=== PATIENT | female | born 1950 | race American Indian/Alaskan Native ===

== ENCOUNTER 2018-09-15 03:36 | Inpatient (IN) ==
[2018-09-15 04:09] LABS: POC Blood Urea Nitrogen 23 mg/dl (8-23); POC CO2 26 mmol/L (22-30); POC Calcium, Ionized 1.07 mmol/L (1.16-1.32); POC Chloride 100 mmol/L (96-108); POC Glucose, Random 176 mg/dL (70-105); POC Potassium 3.4 mmol/L (3.3-5.1); POC Sodium 138 mmol/L (133-145)
--- NOTE | 2018-09-15 04:14 | Emergency Department Note ---
Fall HPI - General Chief Complaint: Fall Stated Complaint: fall Time Seen by Provider: 09/15/18 03:39 Source: patient Mode of arrival: EMS Limitations: language barrier - History of Present Illness HPI Narrative: She was at [employer] when she was walking outside and tripped on the curb injuring her right shoulder and left knee And left hip.she had no head injury there is no neck pain no loss of consciousness. States that she tripped over the curb. Has a superficial laceration to the lower right lip no other injuries involved no tenderness to the torsoTemperature is 97.6 the pulse is 68 respiratory rate 15 blood pressure 172/65 show pulse ox was 87 on 2 L up to 94 - Related Data Home Medications Medication Instructions Recorded Confirmed Carvedilol [Coreg] 25 mg PO BID 09/15/18 09/15/18 Cholecalciferol 09/15/18 Diltiazem HCl [Diltiazem 24Hr Cd] 09/15/18 Furosemide [Lasix] 40 mg PO DAILY 09/15/18 09/15/18 Insulin Detemir [Levemir] 58 unit 09/15/18 Losartan/Hydrochlorothiazide 09/15/18 [Losartan-Hctz 100-25 mg Tab] Potassium Chloride [Kdur] 10 meq PO QAMCC 09/15/18 09/15/18 Vitamin B-12 09/15/18 metFORMIN HCL [Metformin ER 09/15/18 Osmotic] Allergies Allergy/AdvReac Type Severity Reaction Status Date / Time iodine Allergy Intermediate sSOB Verified 09/15/18 03:46 Review of Systems All systems ED: reviewed and negative except as stated. Musculoskeletal: Reports: as per HPI, other (Painful right shoulder left hip right left knee) Fall PMH - Past Medical History Medical history: Reports: DM, hypertension, other (ITP) Surgical history ED: Reports: knee replacement, splenectomy Family history: Reports: no significant family history - Social History smoking status: Never smoker Alcohol use: Reports: None Drug use: Reports: none Physical Exam Limitations: no limitations General appearance: alert Head: atraumatic, normocephalic Eye: Present: normal appearance, PERRL ENT: normal exam, normal oropharynx, mucous membranes moist Neck: Present: normal inspection, full ROM, trachea midline Chest: Present: normal inspection, symmetric chest wall rise. Absent: tenderne ss Respiratory: Present: normal lung sounds bilaterally. Absent: respiratory distress, rales/crackles, wheezes Cardiovascular: Present: regular rate, normal rhythm. Absent: bradycardia, tachycardia Abdominal: Present: soft, normal bowel sounds. Absent: distention, tenderness, guarding, rebound, rigidity Shoulder: Present: normal inspection, tenderness (Tender right shoulder). Absent: laceration, ecchymosis Arm: Present: normal inspection Elbow: Present: normal inspection Forearm/Wrist: Present: normal inspection Hand: Present: normal inspection Hip/Pelvis: Present: tenderness (Tender left hip) Upper leg: Present: normal inspection, full ROM Knee: Present: tenderness (Tender left knee). Absent: deformity, crepitus Lower leg: Present: normal inspection, full ROM Ankle: Present: normal inspection Foot/toe: Present: normal inspection Back: Present: normal inspection, full ROM. Absent: tenderness Neurological: Present: alert, oriented X3, CN II-XII intact Psychiatric: Present: normal affect, normal mood Course Vital Signs Temperature 97.6 F 09/15/18 03:37 Pulse Rate 69 09/15/18 03:37 Respiratory Rate 15 09/15/18 03:37 Blood Pressure 172/65 09/15/18 03:37 Pulse Oximetry (%) 87 L 09/15/18 03:37 Temperature 97.6 F 09/15/18 03:37 Pulse Rate 79 09/15/18 06:51 Respiratory Rate 15 09/15/18 03:37 Blood Pressure 137/57 09/15/18 06:16 Pulse Oximetry (%) 97 09/15/18 06:51 Fall - MDM Narrative Medical decision making narrative: Shoulder x-ray and hip x-rays are negative. Knee x-ray reveals fracture of the distal femur with angulation chest x-ray cardiomegalySodium is 138 potassium 3.4 the BUN is 23 the creatinine 1.0 glucose is 176. The CBC shows a white count of 9400 hemoglobin is 10.6 hematocrit of 32.5 platelet count is 56,000 PT/INR is 1.0 sodium is [address] Pang consulted and Dr Simpson, hospitalist has accepted the patient to med-surg - Lab Data Result diagrams: 09/15/18 04:00 Lab Results 09/15/18 09/15/18 09/15/18 Range/Units 04:00 04:00 05:09 WBC 9.4 (4.5-11.0) K/mcL RBC 3.86 L (4.00-5.20) M/mcL Hgb 10.6 L (12.0-15.0) g/dL Hct 32.5 L (36.0-48.0) % POC Hct 32.0 L (36.0-48.0) % MCV 84.1 (80.0-100.0) fL MCH 27.3 (26.0-34.0) pg MCHC 32.5 (31.0-36.0) g/dL RDW 17.0 H (11.5-14.5) % Plt Count 56 L (140-440) K/mcL MPV 11.7 H (7.4-10.4) fL Gran % 57.1 (38.0-78.0) % Lymph % (Auto) 29.9 (15.5-49.0) % [place] % (Auto) 7.6 (1.0-12.0) % Eos % (Auto) 4.7 (0.0-7.0) % Baso % (Auto) 0.7 (0.0-2.0) % Gran # 5.4 (1.8-8.0) K/mcL Lymph # (Auto) 2.8 (1.5-4.8) K/mcL [place] # (Auto) 0.7 (0.1-0.9) K/mcL Eos # (Auto) 0.4 (0.0-0.7) K/mcL Baso # (Auto) 0.1 (0.0-0.3) K/mcL POC PT (11.9-14.5) sec POC INR (0.9-1.2) PT/INR Range Cancelled POC Sodium 138 (133-145) mmol/L POC Potassium 3.4 (3.3-5.1) mmol/L POC Chloride 100 (96-108) mmol/L POC Total CO2 26 (22-30) mmol/L POC BUN 23 (8-23) mg/dl POC Creatinine 1.0 (0.6-1.1) mg/dl POC Glucose 176 H (70-105) mg/dL POC WB Ioniz Calcium 1.07 L (1.16-1.32) mmol/L Urine Color Urine Appearance Urine pH (5.0-9.0) Ur Specific [place] (1.000-1.035) Urine Protein (NEG) mg/dL Urine Glucose (UA) (NEG) mg/dL Urine Ketones (NEG) mg/dL Urine Occult Blood (<0.03) mg/dL Urine Nitrate (NEG) Urine Bilirubin (NEG) mg/dL Urine Urobilinogen (NEG) mg/dL Ur Leukocyte Esterase (NEG) /uL Urine RBC (0-1) /hpf Urine WBC (0-4) /hpf Ur Squamous Epith Cells (0-4) /hpf Urine Bacteria (0) /hpf Ur Culture Indicated? 09/15/18 09/15/18 Range/Units 05:50 05:51 WBC (4.5-11.0) K/mcL RBC (4.00-5.20) M/mcL Hgb (12.0-15.0) g/dL Hct (36.0-48.0) % POC Hct (36.0-48.0) % MCV (80.0-100.0) fL MCH (26.0-34.0) pg MCHC (31.0-36.0) g/dL RDW (11.5-14.5) % Plt Count (140-440) K/mcL MPV (7.4-10.4) fL Gran % (38.0-78.0) % Lymph % (Auto) (15.5-49.0) % Knox % (Auto) (1.0-12.0) % Eos % (Auto) (0.0-7.0) % Baso % (Auto) (0.0-2.0) % Gran # (1.8-8.0) K/mcL Lymph # (Auto) (1.5-4.8) K/mcL [place] # (Auto) (0.1-0.9) K/mcL Eos # (Auto) (0.0-0.7) K/mcL Baso # (Auto) (0.0-0.3) K/mcL POC PT 12.1 (11.9-14.5) sec POC INR 1.0 (0.9-1.2) PT/INR Range POC Sodium (133-145) mmol/L POC Potassium (3.3-5.1) mmol/L POC Chloride (96-108) mmol/L POC Total CO2 (22-30) mmol/L POC BUN (8-23) mg/dl POC Creatinine (0.6-1.1) mg/dl POC Glucose (70-105) mg/dL POC WB Ioniz Calcium (1.16-1.32) mmol/L Urine Color Yellow Urine Appearance Clear Urine pH 6.0 (5.0-9.0) Ur Specific [place] 1.015 (1.000-1.035) Urine Protein Neg (NEG) mg/dL Urine Glucose (UA) Negative (NEG) mg/dL Urine Ketones Neg (NEG) mg/dL Urine Occult Blood Neg (<0.03) mg/dL Urine Nitrate Neg (NEG) Urine Bilirubin Neg (NEG) mg/dL Urine Urobilinogen Neg (NEG) mg/dL Ur Leukocyte Esterase Neg (NEG) /uL Urine RBC 1 (0-1) /hpf Urine WBC < 1 (0-4) /hpf Ur Squamous Epith Cells < 1 (0-4) /hpf Urine Bacteria 0 (0) /hpf Ur Culture Indicated? No Disposition Pt seen by [employer]/PA only: No Clinical Impression: Femur fracture, left Qualifiers: Encounter type: initial encounter Femur location: distal, unspecified portion Fracture type: closed Disposition: Xfer As Inpt ([facility]) Condition: Fair Referrals: No,PCP [Primary Care Provider] - Time of Disposition: 07:11
[2018-09-15] MEDS ORDERED: ONDANSETRON 4 MG/2 ML VIAL IV ONE (04:51)
[2018-09-15] MEDS ORDERED: LACTATED RINGERS 1,000 ML IV SCH (05:00)
[2018-09-15] MEDS: HYDROmorphone 2 MG/ML VIAL IV PRN ×4 (05:05→09:15)
--- NOTE | 2018-09-15 05:27 | XRay Report ---
CLINICAL INFORMATION: fall COMPARISON: 02/26/2018 left hip films FINDINGS: There is no fracture or other osseous abnormality. There is only mild degenerative changes in both SI and right hip joints. Soft tissues are normal. IMPRESSION: Mild degeneration. No fracture Interpreted and Authenticated by: Clifford Peters 09/15/18
--- NOTE | 2018-09-15 05:27 | XRay Report ---
CLINICAL INFORMATION: fall COMPARISON: 02/01/2015 FINDINGS: Cardiomediastinal silhouette is accentuated by leftward rotation and lordotic positioning and within normal limits. The pulmonary vessels are unremarkable. Lungs are clear. No effusions. IMPRESSION: Negative Interpreted and Authenticated by: Clifford Peters 09/15/18
--- NOTE | 2018-09-15 05:29 | XRay Report ---
CLINICAL INFORMATION: fall COMPARISON: None. FINDINGS: A moderately comminuted fracture of the distal femoral metaphysis is appreciated. Distal fragment is angulated 30 degrees posteriorly and also displaced 5 mm medially and posteriorly. It is fractured just superior to the femoral component of a total knee prostheses which appears uninvolved. Tibial component of the knee prostheses unremarkable. There is moderate periarticular soft tissue swelling. IMPRESSION: Moderately comminuted minimally displaced and angulated fracture of the distal femoral metaphysis. Interpreted and Authenticated by: Clifford Peters 09/15/18
--- NOTE | 2018-09-15 05:30 | XRay Report ---
CLINICAL INFORMATION: fall COMPARISON: None. FINDINGS: No fracture or other osseous abnormality identified. Mild inferior hooking of the acromion predisposes to rotator cuff impingement. Mild acromioclavicular and glenohumeral degeneration noted. Soft tissues are normal IMPRESSION: No fracture or posttraumatic change Interpreted and Authenticated by: Clifford Peters 09/15/18
[2018-09-15 05:38] LABS: Basophils # (Auto) 0.1 K/mcL (0.0-0.3); Basophils % (Auto) 0.7 % (0.0-2.0); Eosinophils # (Auto) 0.4 K/mcL (0.0-0.7); Eosinophils % (Auto) 4.7 % (0.0-7.0); Granulocytes % (Auto) 57.1 % (38.0-78.0); Hematocrit 32.5 % (36.0-48.0); Hemoglobin 10.6 g/dL (12.0-15.0); Lymphocytes # (Auto) 2.8 K/mcL (1.5-4.8); Lymphocytes % (Auto) 29.9 % (15.5-49.0); Mean Cell Volume 84.1 fL (80.0-100.0); Mean Corpuscular HGB Conc 32.5 g/dL (31.0-36.0); Mean Platelet Volume 11.7 fL (7.4-10.4); Monocytes # (Auto) 0.7 K/mcL (0.1-0.9); Monocytes % (Auto) 7.6 % (1.0-12.0); Platelet Count 56 K/mcL (140-440); RBC 3.86 M/mcL (4.00-5.20); WBC 9.4 K/mcL (4.5-11.0)
[2018-09-15 05:59] LABS: POC Pro Time 12.1 sec (11.9-14.5)
[2018-09-15 06:47] LABS: Appearance,Urine CLEAR; Bacteria,Urine 0 /hpf (0); Bilirubin,Urine NEG (NEG); Color,Urine YELLOW; Culture Indicated,Urine NO; Glucose,Urine (UA) NEGATIVE (NEG); Ketones,Urine NEG (NEG); Leukocyte Esterase,Urine NEG /uL (NEG); Nitrate,Urine NEG (NEG); Protein,Urine NEG (NEG); Specific Gravity,Urine 1.015 (1.000-1.035); Urine Blood NEG mg/dL (<0.03); Urine RBC 1 /hpf (0-1); Urine Squamous Epithelial Cell < 1 /hpf (0-4); Urine WBC < 1 /hpf (0-4); Urobilinogen,Urine NEG (NEG)
[2018-09-15] MEDS ORDERED: 0.9 % SODIUM CHLORIDE 1,000 ML IV SCH (07:30)
--- NOTE | 2018-09-15 10:47 | History and Physical Report ---
DATE OF ADMISSION: 09/15/2018 CHIEF COMPLAINT: Left femur fracture. HISTORY OF PRESENT ILLNESS: The patient was at the [facility] this morning when she was walking outside and missed a curb, which resulted in her falling at ground level and landing on her left knee. She was taken to the [facility] Emergency Room this morning and x-rays revealed a left distal periprosthetic femur fracture. The patient complains of severe pain in her left knee, but denies hitting her head during the injury or pain in any other extremity. She also denies chest pain, shortness of breath, numbness or tingling. The patient has a knee replacement in that knee that was performed by a Dr. Bernal in [place] over 5 years ago. She also had the right knee replaced by the same physician, also over 5 years ago and has not had problems with either knee since the time of surgery. PAST MEDICAL HISTORY: The patient has a past medical history significant for idiopathic thrombocytopenia as well as diabetes, hypertension, sleep apnea and possible atrial fibrillation. PAST SURGICAL HISTORY: The patient's past surgical history is significant for bilateral knee replacements, a splenectomy and a parathyroid resection. HOME MEDICATION LIST: Please see her chart. ALLERGIES: TO IODINE. NO OTHER KNOWN DRUG ALLERGIES. REVIEW OF SYSTEMS: A 10-point review of systems is negative except as documented in the HPI. SOCIAL HISTORY: Does not smoke or use alcohol or recreational drugs. PHYSICAL EXAMINATION: GENERAL APPEARANCE: The patient is alert and oriented, in mild acute distress secondary to pain. HEENT: The head is atraumatic, normocephalic. RESPIRATORY: All anterior lung lazaro are clear to auscultation bilaterally. CARDIOVASCULAR: Regular rate and rhythm. No murmurs, gallops or rubs. EXTREMITIES: Bilateral upper extremities are normal by exam. Full range of motion, nontender to palpation and unremarkable. Bilateral lower extremity exam, the left knee is diffusely swollen from the femur, thigh area down to the foot and ankle. She is grossly tender to palpation throughout the entire lower left extremity. Range of motion and strength testing were not tested secondary to the amount of her pain. The patient can actively move her foot and ankle and digits. She does have diabetic neuropathy, but has some sensation in her toes and foot. Capillary refill less than 2 seconds bilaterally. DP/PT pulses 2+ bilaterally. NEUROLOGIC: Alert and oriented x3. PSYCHIATRIC: Normal affect, normal mood. VITAL SIGNS: Temperature is 97.6, pulse is 69, respiratory rate 15, blood pressure 172/65, and pulse ox on room air was 87% and improved to 97% on 2 liters nasal cannula. LABORATORY DATA: WBC 9.4, RBC 3.86, hemoglobin 10.6, and platelet count 56,000. INR 1.0. Prothrombin time 12. Glucose 176. X-RAYS: X-rays of the left femur reveal a distal periprosthetic displaced left femur fracture with the femur prosthetic intact. No other acute abnormalities are identified. IMPRESSION: Left distal periprosthetic femur fracture. PLAN: The patient and her are residents of [place] and live not far from [place] where they receive their routine orthopedic care. Given the extent of the injury, it does require fixation for optimal orthopedic outcomes and ambulation as well as the maintenance of the total knee replacement. The patient was given the option to transfer back home to have the surgery or to have the surgery here at [facility]. Given the amount of pain that the patient is in, she would like to proceed with surgery here at [facility]. We had a lengthy discussion regarding the proposed surgery, which is a left open reduction and internal fixation of the left femur using a plate system. We had a lengthy discussion regarding the risks and benefits associated with surgery including, but not limited to, the risks of excess bleeding given her ITP status and low platelet count, the risk for the need for blood transfusions, the risk of infection, the risk of the need for repeat surgery and the risk of nonunion as well as the risks associated with anesthesia. Understanding these risks, the patient and her wish to proceed with surgery, which will be planned pending hospitalist approval. She may possibly have to have blood transfusion or platelet transfusion prior to surgery to stabilize her blood levels. Once we have this approval, we will proceed with surgery, which will be an open reduction and internal fixation of the left femur with Dr. Pang at [facility]. CK:tod Job ID: [id number] Doc ID: [id number] Najma Marti
--- NOTE | 2018-09-15 11:46 | Internal Medicine Consult Note ---
Medical - CN: HPI - Data of Consult Consult date: 09/15/18 Requesting physician: Clifford Pang Primary Care Provider: PCP No - Consult Narrative History of present illness: Ms. Sutton is a 68 year old F Who is visiting from out of town she stepped out of a car at the motel tripped over a curb falling on her left knee. Immediate left knee pain. She was seen in the ED found to have a periprosthetic fracture of the left distal femur. Hemoglobin was 10.6 and platelets 56,000. Chest x-ray and EKG unremarkable. No head trauma or loss of consciousness. [facility] was contacted for orthopedic surgery. Patient is accompanied by her son who she lives with, they live out of town in [facility]. Review of Systems: Pertinent positives as above. Denies headache/fever/chills/nausea/vomiting/chest or abdominal pain/cough/dyspnea/diarrhea. 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 that she possibly has it but it has apparently never been caught on telemetry, she was placed on diltiazem and was also on Xarelto for period of time but had an episode of severe anemia and needed a transfusion and that was stopped at that episode, she had an endoscopy which showed no source of bleeding Past surgical history includes bilateral knee arthroplasties Parathyroid surgery Laminectomy Family history: Mother diabetes hypertension Father diabetes hypertension Socially: Patient denies tobacco or alcohol ambulates with a cane lives at home with her son Medical - CN: Meds Home Medications Medication Instructions Recorded Confirmed Type Carvedilol [Coreg] 25 mg PO BID 09/15/18 09/15/18 History Cholecalciferol (Vitamin D3) 2,000 unit PO DAILY 09/15/18 09/15/18 History [Children's Vitamin D3] Diltiazem HCl [Diltiazem 24Hr Cd] 120 mg PO DAILY 09/15/18 09/15/18 History Furosemide [Lasix] 40 mg PO DAILY 09/15/18 09/15/18 History Insulin Detemir [Levemir] 58 unit SQ HS 09/15/18 09/15/18 History Losartan/Hctz 100/25 mg PO DAILY 09/15/18 History Potassium Chloride [Kdur] 10 meq PO QAMCC 09/15/18 09/15/18 History Vitamin B-12 1,000 mcg PO DAILY 09/15/18 09/15/18 History cycloSPORINE [Restasis] 1 each OP DAILY 09/15/18 09/15/18 History metFORMIN HCL [Metformin ER 1,000 mg PO BID 09/15/18 09/15/18 History Osmotic] Allergies Allergy/AdvReac Type Severity Reaction Status Date / Time iodine Allergy Intermediate sSOB Verified 09/15/18 03:46 Medical - CN: Exam - Constitutional Vitals: Temp Pulse Resp BP Pulse Ox 98.8 F 85 18 146/71 92 09/15/18 08:45 09/15/18 09:35 09/15/18 09:35 09/15/18 09:21 09/15/18 09:35 Exam: General: Alert, Awake, No acute Distress, obese Eyes/N/T: EOMI, PEERL, DMM Head/Neck: neck supple, normocephalic atraumatic CV: RRR, No murmurs, normal s1/s2 Pulm: Clear b/l, no wheezing/rhonchi/rales Abd: soft, nontender, +BS x4 Ext: no clubbing/cyanosis/edema Neuro: Alert, no focal deficits, CN 2-12 grossly intact, sensations intact b/l upper/lower, Skin: warm/dry Medical - CN: Result - Labs CBC & Chem 7: 09/15/18 04:00 Labs: Short CBC 09/15/18 Range/Units 04:00 WBC 9.4 (4.5-11.0) K/mcL Hgb 10.6 L (12.0-15.0) g/dL Hct 32.5 L (36.0-48.0) % Plt Count 56 L (140-440) K/mcL Urine 09/15/18 Range/Units 05:50 Urine Color Yellow Urine Appearance Clear Urine pH 6.0 (5.0-9.0) Ur Specific [place] 1.015 (1.000-1.035) Urine Protein Neg (NEG) mg/dL Urine Glucose (UA) Negative (NEG) mg/dL - Impressions Distal femur fracture on the left Medical - CN: A/P - Narrative A/P Narrative: A: *Left knee distal femur periprosthetic fracture: *ITP: currently 56k -h/o splenectomy *NCNC Anemia: *DM: *HTN: on coreg/ARB/HCTZ and lasix and Dilt *?Afib: Question per boat worker but never officially been found it sounds like, but has been on diltiazem for the past year and was on Xarelto for period of time until she had an severe anemia and required transfusion *ALEJANDRO: Intolerant to home CPAP * P: -Dr. Pang for ortho -IVIG unavailable, will give prednisone perioperatively -Likely need preoperative platelets -Monitor H&H -hold diuretics, hold ARB -cont BB/Dilt -SSI, and basal (decreased while npo for surgery) - - -pt/ot -ppx: SCD and post-op per ortho
[2018-09-15] MEDS ORDERED: DEXTROSE 50% 50 ML VIAL IV PRN (11:56)
[2018-09-15] MEDS ORDERED: ACETAMINOPHEN 325 MG TABLET PO PRN (11:56)
[2018-09-15] MEDS ORDERED: DEXTROSE 31 GM ORAL.SUSP PO PRN (11:56)
[2018-09-15] MEDS ORDERED: MAGNESIUM HYDROXIDE 30 ML ORAL.SUSP PO PRN (11:56)
[2018-09-15] MEDS ORDERED: PROCHLORPERAZINE 10 MG/2 ML VIAL IV PRN (11:56)
[2018-09-15] MEDS ORDERED: ONDANSETRON 4 MG ODT TABLET SL PRN (11:56)
[2018-09-15] MEDS ORDERED: IPRATROPIUM 2.5 ML AMPUL.NEB NEB PRN (11:56)
[2018-09-15] MEDS ORDERED: 0.9 % SODIUM CHLORIDE 250 ML IV SCH (12:15)
[2018-09-15] MEDS: predniSONE 20 MG TABLET PO SCH (12:38)
[2018-09-15] MEDS: 0.9 % SODIUM CHLORIDE 10 ML SYRINGE IV SCH ×2 (13:21→21:42)
[2018-09-15] MEDS: INSULIN LISPRO 1 UNIT/0.01 ML UNIT SQ SCH ×2 (17:21→21:35)
[2018-09-15] MEDS ORDERED: INSULIN GLARGINE, HUMAN 1 UNIT/0.01 ML SQ SCH (21:00)
[2018-09-15] MEDS: CARVEDILOL 12.5 MG TABLET PO SCH (21:33)
[2018-09-15] MEDS: FAMOTIDINE 20 MG TABLET PO SCH (21:33)
[2018-09-15] MEDS: DOCUSATE SODIUM 100 MG CAPSULE PO SCH (21:33)
[2018-09-16] MEDS: 0.9 % SODIUM CHLORIDE 10 ML SYRINGE IV SCH ×3 (04:47→22:29)
[2018-09-16 05:08] LABS: Basophils # (Auto) 0 K/mcL (0.0-0.3); Basophils % (Auto) 0.1 % (0.0-2.0); Eosinophils # (Auto) 0 K/mcL (0.0-0.7); Eosinophils % (Auto) 0.1 % (0.0-7.0); Granulocytes % (Auto) 79.8 % (38.0-78.0); Hematocrit 30.3 % (36.0-48.0); Hemoglobin 9.7 g/dL (12.0-15.0); Lymphocytes # (Auto) 1.7 K/mcL (1.5-4.8); Mean Cell Volume 85.2 fL (80.0-100.0); Mean Corpuscular HGB Conc 31.9 g/dL (31.0-36.0); Monocytes # (Auto) 0.6 K/mcL (0.1-0.9); Platelet Count 61 K/mcL (140-440); RBC 3.56 M/mcL (4.00-5.20); Red Cell Distribution Width 16.3 % (11.5-14.5); WBC 11.4 K/mcL (4.5-11.0)
[2018-09-16 05:29] LABS: INR 1.2 (0.9-1.1); Prothrombin Time 15.6 sec (11.9-14.5)
[2018-09-16 05:44] LABS: ALT/SGPT 29 U/l (0-40); AST/SGOT 30 U/l (0-37); Albumin 2.8 gm/dL (3.2-5.2); Albumin/Globulin Ratio 0.8 (1.0-2.3); Alkaline Phosphatase 94 U/L (39-117); Bilirubin,Direct < 0.2 mg/dL (0.0-0.3); Bilirubin,Total 0.5 mg/dL (0.0-1.0); Blood Urea Nitrogen 20 mg/dl (8-23); Carbon Dioxide 24 mmol/L (22-30); Chloride 98 mmol/L (96-108); Globulin 3.5 gm/dL (2.2-3.7); Glomerular Filtration Rate 65; Glucose 263 mg/dL (70-105); Lactate Dehydrogenase 207 U/L (94-250); Magnesium 2.1 mg/dL (1.6-2.5); Phosphorous 3.9 mg/dL (2.7-4.5); Potassium 3.5 mmol/L (3.3-5.1); Sodium 134 mmol/L (133-145); Triglycerides 84 mg/dl (<150); Uric Acid 6.3 mg/dL (2.5-8.0)
[2018-09-16] MEDS: INSULIN LISPRO 1 UNIT/0.01 ML UNIT SQ SCH ×4 (06:59→21:39)
--- NOTE | 2018-09-16 06:59 | Internal Med Progress Note ---
Medical - PN: Subj Patient information: Note initiated : 09/16/18 at 6:52 am Service Date, if different from initiated Date: [] Patient: Jeannine Sutton a 68 y/o F admitted on 09/15/18 for fall. Chief Complaint: [] Interval history: Ms. Sutton is a 68 year old F Who is visiting from out of town she stepped out of a car at the motel tripped over a curb falling on her left knee. Immediate left knee pain. She was seen in the ED found to have a periprosthetic fracture of the left distal femur. Hemoglobin was 10.6 and platelets 56,000. Chest x-ray and EKG unremarkable. No head trauma or loss of consciousness. [facility] was contacted for orthopedic surgery. Patient is accompanied by her son who she lives with, they live out of town in [facility]. 09/16 Doing well. No overnight events or new complaints. Platelets up a little bit after steroids yesterday. Patient n.p.o. for surgery. No bleeding. Review of Systems: denies headache/fever/chills/nausea/vomiting/chest or abdominal pain/cou gh/dyspnea/diarrhea. Otherwise see above. - Constitutional Vitals: Vital Signs Temp Pulse Resp BP Pulse Ox 97.7 F 67 16 122/58 99 09/16/18 04:00 09/16/18 04:00 09/16/18 04:00 09/16/18 04:00 09/16/18 04:00 Period Temp Pulse Resp BP Sys/Lentz Pulse Ox Last 24 Hr 97.7 F-99.1 F 67-87 15-20 116-146/52-71 92-99 Intake and Output 09/15/18 09/16/18 09/16/18 21:59 05:59 13:59 Intake Total 480 600 Output Total 750 1950 Balance -270 -1350 Weight 124.511 kg Intake & Output: Intake & Output 09/15/18 09/16/18 09/16/18 21:59 05:59 13:59 Intake Total 480 600 Output Total 750 1950 Balance -270 -1350 Weight 124.511 kg Intake: Oral 480 600 Output: Urine Catheter Amount 750 550 Void Amount 1400 Other: Meal Dinner Percent of Meal Consumed 95% Feeding Ability Independent Urine Appearance Clear Clear Uretheral ([place]) Clear Urine Color Bright Yellow Bright Yellow Uretheral ([place]) Bright Yellow Urine Odor Normal Exam: General: Alert, Awake, No acute Distress, obese Eyes/N/T: EOMI, Head/Neck: neck supple, CV: RRR, No murmurs, Pulm: Clear b/l, no wheezing/rhonchi/rales Abd: soft, nontender, +BS x4 Ext: no clubbing/cyanosis/edema Neuro: Alert, no focal deficits, sensations intact, Skin: warm/dry Medical - PN: Obj Da - Labs CBC & Chem 7: 09/16/18 03:45 09/16/18 03:45 Labs: Abnormal Lab Results 09/16/18 09/16/18 09/16/18 03:45 03:45 03:45 WBC 11.4 H RBC 3.56 L Hgb 9.7 L Hct 30.3 L POC Hct RDW 16.3 H Plt Count 61 L MPV 12.0 H Gran % 79.8 H Lymph % (Auto) 15.0 L Gran # 9.1 H PT 15.6 H INR 1.2 H Glucose 263 H POC Glucose Calcium 8.0 L POC WB Ioniz Calcium GGT 46 H Albumin 2.8 L Albumin/Globulin Ratio 0.8 L 09/15/18 09/15/18 04:00 04:00 WBC RBC 3.86 L Hgb 10.6 L Hct 32.5 L POC Hct 32.0 L RDW 17.0 H Plt Count 56 L MPV 11.7 H Gran % Lymph % (Auto) Gran # PT INR Glucose POC Glucose 176 H Calcium POC WB Ioniz Calcium 1.07 L GGT Albumin Albumin/Globulin Ratio Meds: Medications Acetaminophen (Tylenol) 650 mg PO Q6HP PRN PRN Reason: PAIN/FEVER > 101 Carvedilol (Coreg) 12.5 mg PO BID [facility] Last Admin: 09/15/18 21:33 Dose: 12.5 mg Documented by: Dextrose (Dextrose 50%) 0 ml IV UD PRN PRN Reason: Hypoglycemia Diagnostic Test (Pha) (Accu-Chek) 1 each FS ACHS [facility] Last Admin: 09/15/18 21:36 Dose: 1 each Documented by: Diltiazem HCl (Cardizem Cd) 120 mg PO DAILY [facility] Docusate Sodium (Colace) 100 mg PO BID [facility] Last Admin: 09/15/18 21:33 Dose: 100 mg Documented by: Famotidine (Pepcid) 20 mg PO BID [facility] Last Admin: 09/15/18 21:33 Dose: 20 mg Documented by: Furosemide (Lasix) 40 mg PO DAILY [facility] Glucose (Insta-Glucose) 15 gm PO PRN PRN PRN Reason: Hypoglycemia Insulin Glargine (Lantus) 30 unit SQ [facility] Last Admin: 09/15/18 21:34 Dose: 30 unit Documented by: Insulin Human Lispro (Humalog) 0 unit SQ [facility]; Protocol Last Admin: 09/15/18 21:35 Dose: 10 units Documented by: Ipratropium [place] (Atrovent) 2.5 ml NEB Q4HRT PRN PRN Reason: Bronchospasm Magnesium Hydroxide (Milk Of Magnesia) 30 ml PO DAILYP PRN PRN Reason: Constipation Morphine Sulfate (Morphine) 1 - 4 mg IV Q3HP PRN PRN Reason: PAIN LEVEL > 6 Last Admin: 09/16/18 03:59 Dose: 2 mg Documented by: Ondansetron HCl (Zofran Odt) 4 mg SL Q6HP PRN PRN Reason: Nausea And Vomiting Cyclosporine [ Restasis] 0.05% Ophthalmic Emulsion 1 dose OU DAILY [facility] Potassium Chloride (Kdur) 10 meq PO [facility] Prednisone (Prednisone) 120 mg PO [facility] Last Admin: 09/15/18 12:38 Dose: 120 mg Documented by: Prochlorperazine (Compazine) 5 mg IV Q4HP PRN PRN Reason: Nausea And Vomiting Sodium Chloride (Saline Flush) 10 ml IV Q8 [facility] Last Admin: 09/16/18 04:47 Dose: Not Given Documented by: Medical - PN: A/P - Time Spent With Patient Total time spent is greater than 50% in coordination of care (as documented) at patient's floor/unit and/or counseling patient: - Narrative A/P Narrative: A: *Left knee distal femur periprosthetic fracture: *ITP: 56>61 -h/o splenectomy *NCNC Anemia: *DM: *HTN: on coreg/ARB/HCTZ and lasix and Dilt *?Afib: Question per associate professor of biblical studies but never officially been found it sounds like, but has been on diltiazem for the past year and was on Xarelto for period of time until she had an severe anemia and required transfusion *ALEJANDRO: Intolerant to home CPAP * P: -Dr. Pang for ortho -IVIG unavailable, will give prednisone perioperatively and platelets preop -Monitor H&H -hold diuretics, hold ARB -cont BB/Dilt -SSI, and basal - -pt/ot -ppx: SCD and post-op per ortho
[2018-09-16] MEDS ORDERED: 0.9 % SODIUM CHLORIDE 250 ML IV SCH (07:00)
[2018-09-16 08:36] LABS: Hemoglobin A1C 6.9 % HGB (4.0-6.0)
[2018-09-16] MEDS: POTASSIUM CHLORIDE 10 MEQ TABLET PO SCH (08:38)
[2018-09-16] MEDS: DOCUSATE SODIUM 100 MG CAPSULE PO SCH ×2 (08:39→21:38)
[2018-09-16] MEDS: DILTIAZEM 120 MG CAP.XL.24H PO SCH (08:39)
[2018-09-16] MEDS: FAMOTIDINE 20 MG TABLET PO SCH ×2 (08:39→21:38)
[2018-09-16] MEDS: CARVEDILOL 12.5 MG TABLET PO SCH ×2 (08:46→21:38)
[2018-09-16] MEDS: predniSONE 20 MG TABLET PO SCH (08:46)
[2018-09-16] MEDS ORDERED: FUROSEMIDE 40 MG TABLET PO SCH (09:00)
[2018-09-16] MEDS ORDERED: ceFAZolin 3 GM in DEXTROSE 5% IN WATER 50 ML IV SCH (13:00)
[2018-09-16] MEDS ORDERED: GENTAMICIN SULFATE 800 MG/20 ML VIAL IR ONE (13:37)
[2018-09-16] MEDS ORDERED: fentaNYL 100 MCG/2 ML VIAL IV ONE (14:05)
[2018-09-16] MEDS ORDERED: HYDROmorphone 2 MG/ML VIAL IV ONE (14:05)
[2018-09-16] MEDS ORDERED: MIDAZOLAM 2 MG/2 ML VIAL IV ONE (14:05)
[2018-09-16] MEDS ORDERED: LIDOCAINE HCL/PF 100 MG/5 ML SYRINGE IV ONE (14:05)
[2018-09-16] MEDS ORDERED: TRANEXAMIC ACID 1,000 MG/10 ML VIAL IV ONE (14:05)
[2018-09-16] MEDS ORDERED: KETAMINE 100 MG/ML ML IV ONE (14:05)
[2018-09-16] MEDS ORDERED: ONDANSETRON 4 MG/2 ML VIAL IV ONE (14:05)
[2018-09-16] MEDS ORDERED: PHENYLEPHRINE 10 MG/ML VIAL IV ONE (14:05)
[2018-09-16] MEDS ORDERED: PROPOFOL 200 MG/20 ML VIAL IV ONE (14:05)
[2018-09-16] MEDS ORDERED: GLYCOPYRROLATE 0.2 MG/ML VIAL IV ONE (14:05)
[2018-09-16] MEDS ORDERED: DEXAMETHASONE 10 MG/ML VIAL IV ONE (14:05)
[2018-09-16] MEDS ORDERED: ONDANSETRON 4 MG ODT TABLET SL PRN (16:02)
[2018-09-16] MEDS ORDERED: FLEETS ADULT ENEMA PR PRN (16:02)
[2018-09-16] MEDS ORDERED: BISACODYL 10 MG SUPP.RECT PR PRN (16:02)
[2018-09-16] MEDS ORDERED: MAGNESIUM HYDROXIDE 30 ML ORAL.SUSP PO PRN (16:02)
[2018-09-16] MEDS ORDERED: BENZOCAINE/MENTHOL 1 LOZENGE PO PRN (16:02)
[2018-09-16] MEDS ORDERED: METHOCARBAMOL 750 MG TABLET PO PRN (16:02)
--- NOTE | 2018-09-16 16:02 | Brief Operative Note ---
Date of procedure: 09/16/18 Pre-op diagnosis: left distal femur periprosthetic fracture Post-op diagnosis: same Procedure: ORIF right distal femur periprosthetic fracture Grafts/Implants: Yes Anesthesia: GETA Complications: none Surgeon: Clifford Pang [employer] Consultant: Najma aMrti Estimated blood loss (cc): 200 Specimens Removed/Pathology: none sent Condition: stable Disposition: PACU
--- NOTE | 2018-09-16 16:42 | Operative Note ---
DATE OF OPERATION: 09/16/2018 PREOPERATIVE DIAGNOSIS: Left distal femur periprosthetic fracture, displaced and comminuted. POSTOPERATIVE DIAGNOSIS: Left distal femur periprosthetic fracture, displaced and comminuted. PROCEDURE PERFORMED: Open reduction and internal fixation of left distal femur periprosthetic fracture. SURGEON: Randal Pang M.D. TREATING MACHINE OPERATOR: Najma Marti PA-C. The PA's assistance was required for the safe and efficient completion of the entire case. This provider's expertise and technical skill were required throughout the case. The PA assisted with preoperative coordination, intraoperative retraction, wound closure, dressing and splint application, as well as postoperative documentation and care coordination. ANESTHESIA: General. FINDINGS: Displaced, comminuted distal femur fracture periprosthetic around a total knee. IMPLANTS: 1. Synthes 4.5 VA/LCP 10-hole Synthes distal femoral locking plate. 2. Combination of cortical and locking screws, 5.0 and 4.5. SPECIMENS: None. COMPLICATIONS: None. DRAINS: None. DISPOSITION: To PACU in stable condition. INDICATIONS: The patient is a 68-year-old female from [place]. She fell while here in [place] visiting relatives. She sustained a distal femoral periprosthetic fracture. We talked about different options. We felt that surgical intervention would be the best way to stabilize her knee and improve her function. She wished to proceed with surgical intervention. The risks and benefits were discussed with the patient in detail including, but not limited to, the risks of anesthesia, problems with the heart or lungs related to anesthesia, infection, compromise or injury to the nerves and blood vessels, deep venous thrombosis, pulmonary embolism, pneumonia, continued pain after surgery, worsening pain or symptoms after surgery, swelling, loss of motion, need for repeat surgery, hardware failure, re-tear or failure of repair site, malunion, nonunion, and hardware pain requiring future removal. OPERATIVE NOTE: The patient was seen preoperatively where all questions were answered and the correct side and site were identified and marked. She was then transferred to the operating room and given 2 grams of Ancef and general anesthesia was administered without complication. A bump was placed underneath her buttocks. She was prepped and draped in the usual sterile fashion from the toes up to the axilla. A standard lateral approach was created to the distal femur through the skin and subcutaneous tissue, and a mobile window was created medially and laterally. We curved down at the knee through the iliotibial band for exposure. Proximally, we split the vastus and I came on the undersurface, cauterizing off the ___ perforators and came down to the fracture site. The distal femoral implant was actually impacted and underneath the femur. I had to bring traction. We used a Khan elevator to reduce it and bring it to anatomic position. It was comminuted with multiple fragments. I used K-wires provisionally to fixate as well as a clamp to reduce and approximate. I then placed the 10-hole distal femur locking plate. We used a combination of cortical and locking screws from proximal to distal to secure the fracture anatomically. Radiographs confirmed that the fracture was anatomically reduced, and the hardware was in good position. Once this was done, we thoroughly irrigated with Irrisept and saline. We closed the deep fascia with #2 Stratafix, subcutaneous layer was closed with 0 Vicryl and 3-0 Monocryl, and the skin was closed with tab. She was dressed with Xeroform, 4 x 4, ABD, and an Adan bandage. She was placed into a knee ranger locked in extension. She was then extubated, transferred to a stretcher and taken to PACU in stable condition. BEATRICE:ivonne Job ID: [id number] Doc ID: [id number] Randal Pang MD
[2018-09-16] MEDS: 0.9 % SODIUM CHLORIDE 1,000 ML IV SCH (18:55)
[2018-09-16] MEDS: ASPIRIN 81 MG TAB.CHEW PO SCH (21:38)
[2018-09-16] MEDS: SENNOSIDES 1 TABLET PO SCH (21:38)
[2018-09-16] MEDS: INSULIN GLARGINE, HUMAN 1 UNIT/0.01 ML SQ SCH (21:39)
[2018-09-16] MEDS: ceFAZolin 1 GM VIAL IV SCH (22:29)
[2018-09-17] MEDS: 0.9 % SODIUM CHLORIDE 10 ML SYRINGE IV SCH ×3 (04:36→22:54)
[2018-09-17] MEDS: HYDROcodone/APAP 10/325MG TABLET PO PRN ×4 (04:58→14:27)
[2018-09-17] MEDS: 0.9 % SODIUM CHLORIDE 1,000 ML IV SCH ×3 (05:02→16:36)
[2018-09-17] MEDS: ceFAZolin 1 GM VIAL IV SCH (05:20)
[2018-09-17 05:43] LABS: Hematocrit 27.8 % (36.0-48.0); Hemoglobin 8.8 g/dL (12.0-15.0)
[2018-09-17 05:50] LABS: INR 1.2 (0.9-1.1); Prothrombin Time 15.3 sec (11.9-14.5)
[2018-09-17 06:03] LABS: ALT/SGPT 27 U/l (0-40); AST/SGOT 29 U/l (0-37); Albumin 3.1 gm/dL (3.2-5.2); Alkaline Phosphatase 88 U/L (39-117); Bilirubin,Direct < 0.2 mg/dL (0.0-0.3); Bilirubin,Total 0.3 mg/dL (0.0-1.0); Blood Urea Nitrogen 24 mg/dl (8-23); Calcium 7.9 mg/dl (8.6-10.4); Carbon Dioxide 24 mmol/L (22-30); Chloride 100 mmol/L (96-108); Globulin 3.2 gm/dL (2.2-3.7); Glomerular Filtration Rate 57; Glucose 266 mg/dL (70-105); Lactate Dehydrogenase 198 U/L (94-250); Magnesium 2.2 mg/dL (1.6-2.5); Phosphorous 3.4 mg/dL (2.7-4.5); Sodium 136 mmol/L (133-145); Triglycerides 118 mg/dl (<150); Uric Acid 6.8 mg/dL (2.5-8.0)
--- NOTE | 2018-09-17 06:59 | Internal Med Progress Note ---
Medical - PN: Subj Patient information: Note initiated : 09/17/18 at 6:53 am Service Date, if different from initiated Date: [] Patient: Jeannine Sutton a 68 y/o F admitted on 09/15/18 for Fall with Left Femur Fracture. Chief Complaint: [] Interval history: Ms. Sutton is a 68 year old F Who is visiting from out of town she stepped out of a car at the motel tripped over a curb falling on her left knee. Immediate left knee pain. She was seen in the ED found to have a periprosthetic fracture of the left distal femur. Hemoglobin was 10.6 and platelets 56,000. Chest x-ray and EKG unremarkable. No head trauma or loss of consciousness. [facility] was contacted for orthopedic surgery. Patient is accompanied by her son who she lives with, they live out of town in [facility]. 09/16 Doing well. No overnight events or new complaints. Platelets up a little bit after steroids yesterday. Patient n.p.o. for surgery. No bleeding. 09/17 Slept all right. Feels benefit of oxygen at night if she does not wear CPAP which she is intolerant to. Pain much better controlled since she got surgery. Review of Systems: denies headache/fever/chills/nausea/vomiting/chest or abdominal pain/cough/dyspnea/diarrhea. Otherwise see above. - Constitutional Vitals: Vital Signs Temp Pulse Resp BP Pulse Ox 97.6 F 77 16 130/57 95 09/17/18 03:30 09/17/18 03:30 09/17/18 03:30 09/17/18 03:30 09/16/18 23:47 Period Temp Pulse Resp BP Sys/Lentz Pulse Ox Last 24 Hr 97.1 F-98.5 F 63-79 8-18 112-165/52-112 90-100 Intake and Output 09/16/18 09/17/18 09/17/18 21:59 05:59 13:59 Intake Total 1700 650 Output Total 550 Balance 1700 100 Weight 127.913 kg Intake & Output: Intake & Output 09/16/18 09/17/18 09/17/18 21:59 05:59 13:59 Intake Total 1700 650 Output Total 550 Balance 1700 100 Weight 127.913 kg Intake: Oral 650 IV - Manual Only 1700 Output: Urine Catheter Amount 550 Other: Meal [place], banana Percent of Meal Consumed 100% Feeding Ability Independent Urine Appearance Clear Uretheral (Dillon) Clear Urine Color Bright Yellow Uretheral (Dillon) Bright Yellow Urine Odor Strong Exam: General: Alert, Awake, No acute Distress, obese Eyes/N/T: EOMI, Head/Neck: neck supple, CV: RRR, No murmurs, Pulm: Clear b/l, no wheezing/rhonchi/rales Abd: soft, nontender, +BS x4 Ext: no clubbing/cyanosis/edema Neuro: Alert, no focal deficits, sensations intact, Skin: warm/dry Medical - PN: Obj Da - Labs CBC & Chem 7: 09/17/18 04:07 09/17/18 04:07 Labs: Abnormal Lab Results 09/17/18 09/17/18 09/17/18 04:07 04:07 04:07 WBC RBC Hgb 8.8 L Hct 27.8 L POC Hct RDW Plt Count MPV Gran % Lymph % (Auto) Gran # PT 15.3 H INR 1.2 H BUN 24 H Glucose 266 H POC Glucose Hemoglobin A1c Calcium 7.9 L POC WB Ioniz Calcium GGT 42 H Albumin 3.1 L Albumin/Globulin Ratio 09/16/18 09/16/18 09/16/18 03:45 03:45 03:45 WBC RBC Hgb Hct POC Hct RDW Plt Count MPV Gran % Lymph % (Auto) Gran # PT 15.6 H INR 1.2 H BUN Glucose 263 H POC Glucose Hemoglobin A1c 6.9 H Calcium 8.0 L POC WB Ioniz Calcium GGT 46 H Albumin 2.8 L Albumin/Globulin Ratio 0.8 L 09/16/18 09/15/18 09/15/18 03:45 04:00 04:00 WBC 11.4 H RBC 3.56 L 3.86 L Hgb 9.7 L 10.6 L Hct 30.3 L 32.5 L POC Hct 32.0 L RDW 16.3 H 17.0 H Plt Count 61 L 56 L MPV 12.0 H 11.7 H Gran % 79.8 H Lymph % (Auto) 15.0 L Gran # 9.1 H PT INR BUN Glucose POC Glucose 176 H Hemoglobin A1c Calcium POC WB Ioniz Calcium 1.07 L GGT Albumin Albumin/Globulin Ratio Meds: Medications Acetaminophen (Tylenol) 650 mg PO Q6HP PRN PRN Reason: PAIN/FEVER > 101 Hydrocodone Bitart/Acetaminophen ([place] 10/325mg) 0 tab PO Q4HP PRN PRN Reason: PAIN LEVEL 3-6 Last Admin: 09/17/18 04:58 Dose: 1 tab Documented by: Aspirin (Aspirin) 81 mg PO BID [facility] Last Admin: 09/16/18 21:38 Dose: 81 mg Documented by: Bisacodyl (Dulcolax) 10 mg MI Q2-3DAYS PRN PRN Reason: Constipation [facility] Dextrose (Dextrose 50%) 0 ml IV UD PRN PRN Reason: Hypoglycemia Diagnostic Test (Pha) (Accu-Chek) 1 each FS [facility] Last Admin: 09/16/18 21:41 Dose: 1 each Documented by: Diltiazem HCl (Cardizem Cd) 120 mg PO DAILY [facility] Last Admin: 09/16/18 08:39 Dose: Not Given Documented by: Docusate Sodium (Colace) 100 mg PO BID [facility] Last Admin: 09/16/18 21:38 Dose: 100 mg Documented by: Famotidine (Pepcid) 20 mg PO BID [facility] Last Admin: 09/16/18 21:38 Dose: 20 mg Documented by: Glucose (Insta-Glucose) 15 gm PO PRN PRN PRN Reason: Hypoglycemia Sodium Chloride (Sodium Chloride 0.9%) 1,000 mls @ 125 mls/hr IV .Q8H [facility] Last Admin: 09/17/18 05:02 Dose: Not Given Documented by: Insulin Glargine (Lantus) 58 unit [address] [facility] Last Admin: 09/16/18 21:39 Dose: 58 units Documented by: Insulin Human Lispro (Humalog) 0 unit SQ [facility]; Protocol Last Admin: 09/16/18 21:39 Dose: 8 units Documented by: Ipratropium [place] (Atrovent) 2.5 ml NEB Q4HRT PRN PRN Reason: Bronchospasm Magnesium Hydroxide (Milk Of Magnesia) 30 ml PO BIDP PRN PRN Reason: Constipation Methocarbamol (Robaxin) 750 mg PO Q6HP PRN PRN Reason: Muscle Spasm Morphine Sulfate (Morphine) 0 mg IV Q1HP PRN PRN Reason: PAIN LEVEL > 6 Last Admin: 09/16/18 21:39 Dose: 2 mg Documented by: Ondansetron HCl (Zofran Odt) 4 mg SL Q4HP PRN PRN Reason: Nausea And Vomiting Cyclosporine [ Restasis] 0.05% Ophthalmic Emulsion 1 dose OU DAILY [facility] Last Admin: 09/16/18 08:39 Dose: Not Given Documented by: Polyethylene Glycol (Miralax) 17 gm PO DAILYP PRN PRN Reason: Constipation Potassium Chloride (Kdur) 10 meq PO [facility] Last Admin: 09/16/18 08:38 Dose: Not Given Documented by: Prednisone (Prednisone) 120 mg PO [facility] Last Admin: 09/16/18 08:46 Dose: 120 mg Documented by: Prochlorperazine (Compazine) 5 mg IV Q4HP PRN PRN Reason: Nausea And Vomiting Senna (Senokot) 2 tab PO [facility] Last Admin: 09/16/18 21:38 Dose: 2 tab Documented by: Sodium Biphosphate/Sodium Phosphate (Fleets Adult) 1 dose MI Q3-4DAYS PRN PRN Reason: Constipation Sodium Chloride (Saline Flush) 10 ml IV Q8 [facility] Last Admin: 09/17/18 04:36 Dose: Not Given Documented by: Throat Lozenges (Cepacol) 1 lozenge PO PRN PRN PRN Reason: Sore Throat Medical - PN: A/P - Time Spent With Patient Total time spent is greater than 50% in coordination of care (as documented) at patient's floor/unit and/or counseling patient: - Narrative A/P Narrative: A: *Left knee distal femur periprosthetic fracture: s/p ORIF (09/16) *ITP: stable -h/o splenectomy *NCNC Anemia: acute on chronic post-op and dilutional *DM: *HTN: on coreg/ARB/HCTZ and lasix and Dilt *?Afib: Question per sandstone splitter but never officially been found it sounds like, but has been on diltiazem for the past year and was on Xarelto for period of time until she had an severe anemia and required transfusion *ALEJANDRO: Intolerant to home CPAP * P: -Dr. Pang for ortho -Monitor H&H/PLT's, bleeding -hold diuretics, restart ARB -cont BB/Dilt -SSI, and basal -CM for placement -pt/ot -ppx: ASA bid per ortho
[2018-09-17] MEDS: INSULIN LISPRO 1 UNIT/0.01 ML UNIT SQ SCH ×4 (07:26→21:51)
--- NOTE | 2018-09-17 07:26 | Orthopedic Progress Note ---
Subjective Patient information: Note initiated : 09/17/18 at 7:23 am Service Date, if different from initiated Date: [] Patient: Jeannine Sutton 68 y/o F admitted on 09/15/18 for Fall with Left Femur Fracture. Chief Complaint: [] Interval history: doing much better. pain under control Objective Vital signs: Vital Signs Temp Pulse Resp BP BP BP Pulse Ox 09/17/18 03:30 97.6 F 77 16 130/57 09/16/18 23:47 98.5 F 75 12 132/68 95 09/16/18 21:39 79 119/59 94 09/16/18 20:39 70 146/72 90 09/16/18 20:10 79 116/62 91 09/16/18 19:40 74 128/68 96 09/16/18 19:24 70 147/73 91 09/16/18 19:09 71 150/72 90 09/16/18 18:54 69 148/73 91 09/16/18 18:40 97.4 F 65 12 149/74 93 09/16/18 18:00 97.1 F 65 16 157/82 93 09/16/18 17:45 97.9 F 66 16 165/68 09/16/18 17:35 70 14 156/82 99 09/16/18 17:25 97.5 F 73 12 146/112 09/16/18 17:15 68 8 L 164/81 95 09/16/18 17:05 97.4 F 74 16 149/69 98 09/16/18 16:55 76 14 146/79 96 09/16/18 16:50 63 10 L 149/67 100 09/16/18 16:45 65 8 L 134/79 100 09/16/18 16:41 97.6 F 66 9 L 139/57 100 09/16/18 12:00 97.6 F 70 18 138/59 92 09/16/18 08:00 97.7 F 64 18 112/52 94 Intake and Output 09/16/18 09/17/18 09/17/18 21:59 05:59 13:59 Intake Total 1700 650 Output Total 550 Balance 1700 100 Intake: Oral 650 IV - Manual Only 1700 Output: Urine Catheter Amount 550 Other: Meal [place], banana Percent of Meal Consumed 100% Feeding Ability Independent Urine Appearance Clear Uretheral (Dillon) Clear Urine Color Bright Yellow Uretheral (Dillon) Bright Yellow Urine Odor Strong Weight 282 lb Intake & Output: Intake & Output 09/16/18 09/17/18 09/17/18 21:59 05:59 13:59 Intake Total 1700 650 Output Total 550 Balance 1700 100 Weight 282 lb Intake: Oral 650 IV - Manual Only 1700 Output: Urine Catheter Amount 550 Other: Meal [place], banana Percent of Meal Consumed 100% Feeding Ability Independent Urine Appearance Clear Uretheral (Dillon) Clear Urine Color Bright Yellow Uretheral (Dillon) Bright Yellow Urine Odor Strong Incision: Yes healing Incision clean and dry: Yes Dressing: Yes clean, Yes dry, Yes intact Weight bearing status: full Neurological exam IM: Yes alert, Yes oriented X3, Yes motor sensory intact, Yes neurovascular intact Extremities exam IM: No calf tenderness, Yes Foot pink and warm, Yes katie rovascular intact - Labs CBC & BMP: 09/17/18 04:07 09/17/18 04:07 Labs: Orthopedic Labs 09/17/18 09/16/18 09/15/18 04:07 03:45 05:51 POC PT 12.1 PT 15.3 H 15.6 H POC INR 1.0 INR 1.2 H 1.2 H PT/INR Range 09/15/18 09/15/18 09/15/18 05:09 04:51 04:40 POC PT Pending PT POC INR Pending INR PT/INR Range Cancelled 09/17/18 09/16/18 09/15/18 04:07 03:45 04:00 Hgb 8.8 L 9.7 L 10.6 L Hct 27.8 L 30.3 L 32.5 L Assessment and Plan (1) Femur fracture, left A: POD 1 s/p ORIF left distal femur fracture P: NWB x 8 weeks pain control dvt prophylaxis d/c planning - home vs snf pt, ok to mobilize knee f/u in 14 days for staple removal Status: Acute Qualifiers: Encounter type: initial encounter Femur location: distal, unspecified portion Fracture type: closed
[2018-09-17] MEDS: POTASSIUM CHLORIDE 10 MEQ TABLET PO SCH (08:49)
[2018-09-17] MEDS: CARVEDILOL 12.5 MG TABLET PO SCH ×2 (08:49→16:39)
[2018-09-17] MEDS: ASPIRIN 81 MG TAB.CHEW PO SCH ×2 (08:49→21:44)
[2018-09-17] MEDS: DILTIAZEM 120 MG CAP.XL.24H PO SCH (08:49)
[2018-09-17] MEDS: LOSARTAN 50 MG TABLET PO SCH (08:49)
[2018-09-17] MEDS: FAMOTIDINE 20 MG TABLET PO SCH ×2 (08:49→21:44)
[2018-09-17] MEDS: DOCUSATE SODIUM 100 MG CAPSULE PO SCH ×2 (08:49→21:44)
--- NOTE | 2018-09-17 08:58 | Discharge Summary ---
Medical - DS: Prov Patient information: Note initiated : 09/17/18 at 8:55 am Service Date, if different from initiated Date: [] Patient: Jeannine Sutton 68 y/o F admitted on 09/15/18 for Fall with Left Femur Fracture. Chief Complaint: [] Date of admission: 09/15/18 09:25 Discharge date: 09/18/18 Medical - DS: Meds - Discharge Medications Prescriptions: Aspirin 81 mg PO BID #58 tab.chew HYDROcodone/APAP 10/325MG [[place] 10-325Mg] 1 tab PO Q4HP PRN #20 tab PRN Reason: Pain Level 3-6 Active and Home Medications: Home Medications Carvedilol [Coreg] 25 mg PO BID 09/15/18 [History Confirmed 09/15/18 Last Taken 09/14/18 09:00] Cholecalciferol (Vitamin D3) [Children's Vitamin D3] 2,000 unit PO DAILY 09/15/18 [History Confirmed 09/15/18 Last Taken 09/14/18 09:00] Diltiazem HCl [Diltiazem 24Hr Cd] 120 mg PO DAILY 09/15/18 [History Confirmed 09/15/18 Last Taken 09/14/18 09:00] Furosemide [Lasix] 40 mg PO DAILY 09/15/18 [History Confirmed 09/15/18 Last Taken 09/14/18 09:00] Insulin Detemir [Levemir] 58 unit SQ [facility] 09/15/18 [History Confirmed 09/15/18 Last Taken 09/13/18 23:00] Losartan/Hctz 100/25 1 tab PO DAILY 09/15/18 [History Confirmed 09/15/18 Last Taken 09/14/18 09:00] Potassium Chloride [Kdur] [facility] 09/15/18 [History Confirmed 09/15/18 Last Taken 09/14/18 09:00] Vitamin B-12 1,000 mcg PO DAILY 09/15/18 [History Confirmed 09/15/18 Last Taken 09/14/18 09:00] cycloSPORINE [Restasis] 1 each OP DAILY 09/15/18 [History Confirmed 09/15/18 Last Taken 09/14/18 09:00] metFORMIN HCL [Metformin ER Osmotic] 1,000 mg PO BID 09/15/18 [History Confirmed 09/15/18 Last Taken 09/14/18 09:00] Medical - DS: Hosp Hospital course: Mr. Sutton is a 68 year old F Ms. Sutton is a 68 year old F Who is visiting from [place] of town she stepped out of a car at the motel tripped over a curb falling on her left knee. Immediate left knee pain. She was seen in the ED found to have a periprosthetic fracture of the left distal femur. Hemoglobin was 10.6 and platelets 56,000. Chest x-ray and EKG unremarkable. No head trauma or loss of consciousness. [facility] was contacted for orthopedic surgery. Patient is accompanied by her son who she lives with, they live out of town in [facility]. 09/16 Doing well. No overnight events or new complaints. Platelets up a little bit after steroids yesterday. Patient n.p.o. for surgery. No bleeding. 09/17 Slept all right. Feels benefit of oxygen at night if she does not wear CPAP which she is intolerant to. Pain much better controlled since she got surgery. 09/18 Poor sleep last night increased pain in her knee last night, but appears better controlled this morning. No other complaints or overnight events. Stable for d/c. Discharge diagnosis: Left knee distal femur periprosthetic fracture ITP anemia diabetes hyperten Secondary discharge diagnosis: Hypertension ALEJANDRO questionable A. fib history - Time Spent with Patient Total time spent providing and/or coordinating discharge services: Greater than 30 minutes Medical - DS: Exam - Constitutional Vitals: Vital Signs Temp Pulse Resp BP BP BP Pulse Ox 09/17/18 07:40 96.8 F L 75 16 131/58 94 09/17/18 03:30 97.6 F 77 16 130/57 09/16/18 23:47 98.5 F 75 12 132/68 95 09/16/18 21:39 79 119/59 94 09/16/18 20:39 70 146/72 90 09/16/18 20:10 79 116/62 91 09/16/18 19:40 74 128/68 96 09/16/18 19:24 70 147/73 91 09/16/18 19:09 71 150/72 90 09/16/18 18:54 69 148/73 91 09/16/18 18:40 97.4 F 65 12 149/74 93 09/16/18 18:00 97.1 F 65 16 157/82 93 09/16/18 17:45 97.9 F 66 16 165/68 09/16/18 17:35 70 14 156/82 99 09/16/18 17:25 97.5 F 73 12 146/112 09/16/18 17:15 68 8 L 164/81 95 09/16/18 17:05 97.4 F 74 16 149/69 98 09/16/18 16:55 76 14 146/79 96 09/16/18 16:50 63 10 L 149/67 100 09/16/18 16:45 65 8 L 134/79 100 09/16/18 16:41 97.6 F 66 9 L 139/57 100 09/16/18 12:00 97.6 F 70 18 138/59 92 Intake and Output 09/16/18 09/17/18 09/17/18 21:59 05:59 13:59 Intake Total 1700 650 Output Total 550 Balance 1700 100 Intake: Oral 650 IV - Manual Only 1700 Output: Urine Catheter Amount 550 Other: Meal [place], banana Breakfast Percent of Meal Consumed 100% 100% Feeding Ability Independent Urine Appearance Clear Uretheral (Dillon) Clear Clear Urine Color Bright Yellow Uretheral ([place]) Bright Yellow Pale Urine Odor Strong Weight 127.913 kg Medical - DS: Data Labs on day of discharge: Labs from last 24 hours 09/17/18 09/17/18 09/17/18 04:07 04:07 04:07 Hgb Hct Plt Count 114 L PT 15.3 H INR 1.2 H Sodium 136 Potassium 4.0 Chloride 100 Carbon Dioxide 24 Anion Gap 12.0 BUN 24 H Creatinine 1.0 GFR Calculation 57 Glucose 266 H Uric Acid 6.8 Calcium 7.9 L Phosphorus 3.4 Magnesium 2.2 Total Bilirubin 0.3 Direct Bilirubin < 0.2 GGT 42 H AST 29 ALT 27 Alkaline Phosphatase 88 Lactate Dehydrogenase 198 Total Protein 6.3 Albumin 3.1 L Globulin 3.2 Albumin/Globulin Ratio 1.0 Triglycerides 118 09/17/18 04:07 Hgb 8.8 L Hct 27.8 L Plt Count PT INR Sodium Potassium Chloride Carbon Dioxide Anion Gap BUN Creatinine GFR Calculation Glucose Uric Acid Calcium Phosphorus Magnesium Total Bilirubin Direct Bilirubin GGT AST ALT Alkaline Phosphatase Lactate Dehydrogenase Total Protein Albumin Globulin Albumin/Globulin Ratio Triglycerides Medical - DS: A/P - Patient/Caregiver Discharge Instructions Activity: as per physical therapy Diet: Consistent Carbohydrate Additional Instructions: Discharge Instructions: Do the exercises at home that physical therapy gave you. NON WEIGHT BEARING FOR 8 WEEKS. NEEDS 2 PERSON ASSIST FOR ALL TRANSFERS. PT/OT eval and treat. Take your prescription to filler picker any medication or equipment (such as walker, crutches, toilet riser or C.P.M.) Wear comfortable clothing for your physical therapy. You have the Aquacel Ag dressing, leave in place for 7 days then remove. If dressing becomes soiled (turns black), remove and use gauze 4x4 dressing and silvasorb ointment and change daily. You may shower with dressing on, pat dry after shower. You may start showering on post op day #2. The dressing can get wet, do not scrub dressing, pat dry. To avoid constipation while taking any narcotic pain medication, take an over the counter stool softener/laxative. Use you ice packs as directed, on for 20 minutes at a time throughout the day. May apply ice directly to thigh with top part of brace open when in bed. This and elevation will help with pain and swelling. Call your physician for fevers above 100.5 or pain not controlled by medication. Take Aspirin as prescribed to prevent blood clots (see medication list).f/u with PT/OT at SNF Prescriptions: Aspirin 81 mg PO BID #58 tab.chew HYDROcodone/APAP 10/325MG [[place] 10-325Mg] 1 tab PO Q4HP PRN #20 tab PRN Reason: Pain Level 3-6 - Follow up Plan Follow up with: Jadon Chowdhury MD [Physician] - (entered in error- do not follow up with Dr. Chowdhury) No,PCP [Referring] - Clifford Pang MD [Physician] - Disposition: [facility] SNF Prognosis: Fair Rehab Potential: Fair I certify that the patient requires SNF services: Yes Overall status at discharge: patient is progressing back to baseline
[2018-09-17] MEDS: SENNOSIDES 1 TABLET PO SCH (21:43)
[2018-09-17] MEDS: INSULIN GLARGINE, HUMAN 1 UNIT/0.01 ML SQ SCH (21:58)
[2018-09-17] MEDS: POLYETHYLENE GLYCOL 3350 17 GM PACKET PO PRN (22:54)
[2018-09-18] MEDS: 0.9 % SODIUM CHLORIDE 1,000 ML IV SCH (00:30)
[2018-09-18] MEDS: HYDROcodone/APAP 10/325MG TABLET PO PRN ×4 (03:45→12:09)
[2018-09-18] MEDS: 0.9 % SODIUM CHLORIDE 10 ML SYRINGE IV SCH ×2 (05:17→15:11)
[2018-09-18 05:20] LABS: Hematocrit 26.2 % (36.0-48.0); Hemoglobin 8.4 g/dL (12.0-15.0)
[2018-09-18 05:29] LABS: INR 1.2 (0.9-1.1); Prothrombin Time 15.5 sec (11.9-14.5)
--- NOTE | 2018-09-18 06:31 | Internal Med Progress Note ---
Medical - PN: Subj Patient information: Note initiated : 09/18/18 at 6:28 am Service Date, if different from initiated Date: [] Patient: Jeannine Sutton a 68 y/o F admitted on 09/15/18 for Fall with Left Femur Fracture. Chief Complaint: [] Interval history: Ms. Sutton is a 68 year old F Who is visiting from out of town she stepped out of a car at the motel tripped over a curb falling on her left knee. Immediate left knee pain. She was seen in the ED found to have a periprosthetic fracture of the left distal femur. Hemoglobin was 10.6 and platelets 56,000. Chest x-ray and EKG unremarkable. No head trauma or loss of consciousness. [facility] was contacted for orthopedic surgery. Patient is accompanied by her son who she lives with, they live out of town in [facility]. 09/16 Doing well. No overnight events or new complaints. Platelets up a little bit after steroids yesterday. Patient n.p.o. for surgery. No bleeding. 09/17 Slept all right. Feels benefit of oxygen at night if she does not wear CPAP which she is intolerant to. Pain much better controlled since she got surgery. 09/18 Poor sleep last night increased pain in her knee. There is been better controlled this morning. No other complaints or overnight events. Review of Systems: denies headache/fever/chills/nausea/vomiting/chest or abdominal pain/cough/dyspnea/diarrhea. Otherwise see above. - Constitutional Vitals: Vital Signs Temp Pulse Resp BP Pulse Ox 99.2 F H 80 14 141/61 98 09/18/18 03:34 09/18/18 03:34 09/18/18 03:34 09/18/18 03:34 09/18/18 03:34 Period Temp Pulse Resp BP Sys/Lentz Pulse Ox Last 24 Hr 96.8 F-99.2 F 68-80 14-16 117-150/54-78 93-98 Intake and Output 09/17/18 09/18/18 09/18/18 21:59 05:59 13:59 Intake Total 240 800 Output Total 650 2300 Balance -410 -1500 Weight 128.367 kg Intake & Output: Intake & Output 09/17/18 09/18/18 09/18/18 21:59 05:59 13:59 Intake Total 240 800 Output Total 650 2300 Balance -410 -1500 Weight 128.367 kg Intake: Oral 240 800 Output: Urine Catheter Amount 650 2300 Other: Meal Dinner Percent of Meal Consumed 100% Feeding Ability Independent Urine Appearance Cloudy Clear Uretheral (Dillon) Clear Urine Color Dark Yellow Pale Uretheral ([place]) Pale Urine Odor Normal Normal Exam: General: Alert, Awake, No acute Distress, obese Eyes/N/T: EOMI, Head/Neck: neck supple, CV: RRR, No murmurs, Pulm: Clear b/l, no wheezing/rhonchi/rales Abd: soft, nontender, +BS x4 Ext: no clubbing/cyanosis/edema. Left lower extreme knee brace Neuro: Alert, no focal deficits, sensations intact, Skin: warm/dry Medical - PN: Obj Da - Labs CBC & Chem 7: 09/18/18 04:15 09/17/18 04:07 Labs: Abnormal Lab Results 09/18/18 09/18/18 09/17/18 04:15 04:15 04:07 WBC RBC Hgb 8.4 L Hct 26.2 L RDW Plt Count 108 L 114 L MPV Gran % Lymph % (Auto) Gran # PT 15.5 H INR 1.2 H BUN Glucose Hemoglobin A1c Calcium GGT Albumin Albumin/Globulin Ratio 09/17/18 09/17/18 09/17/18 04:07 04:07 04:07 WBC RBC Hgb 8.8 L Hct 27.8 L RDW Plt Count MPV Gran % Lymph % (Auto) Gran # PT 15.3 H INR 1.2 H BUN 24 H Glucose 266 H Hemoglobin A1c Calcium 7.9 L GGT 42 H Albumin 3.1 L Albumin/Globulin Ratio 09/16/18 09/16/18 09/16/18 03:45 03:45 03:45 WBC RBC Hgb Hct RDW Plt Count MPV Gran % Lymph % (Auto) Gran # PT 15.6 H INR 1.2 H BUN Glucose 263 H Hemoglobin A1c 6.9 H Calcium 8.0 L GGT 46 H Albumin 2.8 L Albumin/Globulin Ratio 0.8 L 09/16/18 03:45 WBC 11.4 H RBC 3.56 L Hgb 9.7 L Hct 30.3 L RDW 16.3 H Plt Count 61 L MPV 12.0 H Gran % 79.8 H Lymph % (Auto) 15.0 L Gran # 9.1 H PT INR BUN Glucose Hemoglobin A1c Calcium GGT Albumin Albumin/Globulin Ratio Meds: Medications Acetaminophen (Tylenol) 650 mg PO Q6HP PRN PRN Reason: PAIN/FEVER > 101 Hydrocodone Bitart/Acetaminophen ([place] 10/325mg) 0 tab PO Q4HP PRN PRN Reason: PAIN LEVEL 3-6 Last Admin: 09/18/18 05:25 Dose: 1 tab Documented by: Aspirin (Aspirin) 81 mg PO BID [facility] Last Admin: 09/17/18 21:44 Dose: 81 mg Documented by: Bisacodyl (Dulcolax) 10 mg RI Q2-3DAYS PRN PRN Reason: Constipation [facility] Last Admin: 09/17/18 16:39 Dose: 12.5 mg Documented by: Dextrose (Dextrose 50%) 0 ml IV UD PRN PRN Reason: Hypoglycemia Diagnostic Test (Pha) (Accu-Chek) 1 each FS [facility] Last Admin: 09/17/18 22:54 Dose: 1 each Documented by: Diltiazem HCl (Cardizem Cd) 120 mg PO DAILY [facility] Last Admin: 09/17/18 08:49 Dose: 120 mg Documented by: Docusate Sodium (Colace) 100 mg PO BID [facility] Last Admin: 09/17/18 21:44 Dose: 100 mg Documented by: Famotidine (Pepcid) 20 mg PO BID [facility] Last Admin: 09/17/18 21:44 Dose: 20 mg Documented by: Glucose (Insta-Glucose) 15 gm PO PRN PRN PRN Reason: Hypoglycemia Insulin Glargine (Lantus) 58 unit SQ [facility] Last Admin: 09/17/18 21:58 Dose: 58 units Documented by: Insulin Human Lispro (Humalog) 0 unit SQ [facility]; Protocol Last Admin: 09/17/18 21:51 Dose: 6 unit Documented by: Ipratropium [place] (Atrovent) 2.5 ml NEB Q4HRT PRN PRN Reason: Bronchospasm Losartan Potassium (Cozaar) 50 mg PO DAILY [facility] Last Admin: 09/17/18 08:49 Dose: 50 mg Documented by: Magnesium Hydroxide (Milk Of Magnesia) 30 ml PO BIDP PRN PRN Reason: Constipation Methocarbamol (Robaxin) 750 mg PO Q6HP PRN PRN Reason: Muscle Spasm Morphine Sulfate (Morphine) 0 mg IV Q1HP PRN PRN Reason: PAIN LEVEL > 6 Last Admin: 09/17/18 21:41 Dose: 2 mg Documented by: Ondansetron HCl (Zofran Odt) 4 mg SL Q4HP PRN PRN Reason: Nausea And Vomiting Cyclosporine [ Restasis] 0.05% Ophthalmic Emulsion 1 dose OU DAILY [facility] Last Admin: 09/17/18 08:55 Dose: Not Given Documented by: Polyethylene Glycol (Miralax) 17 gm PO DAILYP PRN PRN Reason: Constipation Last Admin: 09/17/18 22:54 Dose: 17 gm Documented by: Potassium Chloride (Kdur) 10 meq PO QAC [facility] Last Admin: 09/17/18 08:49 Dose: 10 meq Documented by: Prochlorperazine (Compazine) 5 mg IV Q4HP PRN PRN Reason: Nausea And Vomiting Senna (Senokot) 2 tab PO HS [facility] Last Admin: 09/17/18 21:43 Dose: 2 tab Documented by: Sodium Biphosphate/Sodium Phosphate (Fleets Adult) 1 dose RI Q3-4DAYS PRN PRN Reason: Constipation Sodium Chloride (Saline Flush) 10 ml IV Q8 [facility] Last Admin: 09/18/18 05:17 Dose: 10 ml Documented by: Throat Lozenges (Cepacol) 1 lozenge PO PRN PRN PRN Reason: Sore Throat Medical - PN: A/P - Time Spent With Patient Total time spent is greater than 50% in coordination of care (as documented) at patient's floor/unit and/or counseling patient: - Narrative A/P Narrative: A: *Left knee distal femur periprosthetic fracture: s/p ORIF (09/16) *ITP: stable -h/o splenectomy *NCNC Anemia: acute on chronic post-op and dilutional *DM: *HTN: on coreg/ARB/HCTZ and lasix and Dilt *?Afib: Question per mold repairer but never officially been found it sounds like, but has been on diltiazem for the past year and was on Xarelto for period of time until she had an severe anemia and required transfusion *ALEJANDRO: Intolerant to home CPAP * P: -Dr. Pang for ortho -Monitor H&H/PLT's, bleeding -hold diuretics, restart ARB -cont BB/Dilt -SSI, and basal -CM for placement -f/u with PCP regarding nocturnal O2 as she is intolerant to CPAP. -pt/ot -ppx: ASA bid per ortho
--- NOTE | 2018-09-18 07:14 | Discharge Summary ---
Ortho Discharge Plan - General - Patient Instructions Diet: Consistent Carbohydrate Activity: ambulate with assistive device, partial weight bearing Dressing Care: Aquacel Ag - leave on for 5 days, Other (tab) Patient Education: Aspirin (By mouth), Hydrocodone (By mouth), Open Reduction and Internal Fixation of a Hip Fracture (DC) - Follow Up Plan Follow Up Appointments: No,PCP [Referring] - Jadon Chowdhury MD [Physician] - (entered in error- do not follow up with Dr. Chowdhury) Disposition: Xfer SNF Prognosis: Fair Rehab Potential: Fair I certify that the patient requires SNF services: Yes - Orders For Discharge Prescriptions: Aspirin 81 mg PO BID #58 tab.chew HYDROcodone/APAP 10/325MG [[place] 10-325Mg] 1 tab PO Q4HP PRN #20 tab PRN Reason: Pain Level 3-6
--- NOTE | 2018-09-18 07:18 | Orthopedic Progress Note ---
Subjective Patient information: Note initiated : 09/18/18 at 7:14 am Service Date, if different from initiated Date: [] Patient: Jeannine Sutton 68 y/o F admitted on 09/15/18 for Fall with Left Femur Fracture. Chief Complaint: [POD #2 s/p ORIF left distal femur] Patient complaining of thigh pain this morning. Has been transferring with help okay. Is being followed by hospitalist for chronic medical conditions. Denies CP, SOB, numbness, tingling Objective Vital signs: Vital Signs Temp Pulse Resp BP Pulse Ox 09/18/18 03:34 99.2 F H 80 14 141/61 98 09/17/18 23:12 99.0 F 75 14 150/78 95 09/17/18 20:00 16 09/17/18 19:24 98.8 F 72 14 126/57 93 09/17/18 16:00 97.1 F 68 16 117/54 98 09/17/18 12:00 96.9 F L 75 16 134/55 94 09/17/18 07:40 96.8 F L 75 16 131/58 94 Intake and Output 09/17/18 09/18/18 09/18/18 21:59 05:59 13:59 Intake Total 240 800 Output Total 650 2300 Balance -410 -1500 Intake: Oral 240 800 Output: Urine Catheter Amount 650 2300 Other: Meal Dinner Percent of Meal Consumed 100% Feeding Ability Independent Urine Appearance Cloudy Clear Uretheral ([place]illon) Clear Urine Color Dark Yellow Pale Uretheral ([place]) Pale Urine Odor Normal Normal Weight 283 lb Intake & Output: Intake & Output 09/17/18 09/18/18 09/18/18 21:59 05:59 13:59 Intake Total 240 800 Output Total 650 2300 Balance -410 -1500 Weight 283 lb Intake: Oral 240 800 Output: Urine Catheter Amount 650 2300 Other: Meal Dinner Percent of Meal Consumed 100% Feeding Ability Independent Urine Appearance Cloudy Clear Uretheral ([place]) Clear Urine Color Dark Yellow Pale Uretheral ([place]) Pale Urine Odor Normal Normal Incision: Yes healing, No draining, No red, No swollen, No inflamed, Yes clean and dry Dressing: Yes clean, Yes dry, Yes intact Weight bearing status: partial Range of motion: full foot and ankle Neurological exam IM: Yes alert, Yes oriented X3, Yes motor sensory intact, Yes neurovascular intact Extremities exam IM: No calf tenderness, Yes Foot pink and warm, Yes neurovascular intact - [place] Pulses Peripheral pulses: 2+: posterior tibialis (L), posterior tibialis (R) - Labs CBC & BMP: 09/18/18 04:15 09/17/18 04:07 Labs: Orthopedic Labs 09/18/18 09/17/18 09/16/18 04:15 04:07 03:45 POC PT PT 15.5 H 15.3 H 15.6 H POC INR INR 1.2 H 1.2 H 1.2 H PT/INR Range 09/15/18 09/15/18 09/15/18 05:51 05:09 04:51 POC PT 12.1 PT POC INR 1.0 Pending INR PT/INR Range Cancelled 09/15/18 04:40 POC PT Pending PT POC INR INR PT/INR Range 09/18/18 09/17/18 09/16/18 04:15 04:07 03:45 Hgb 8.4 L 8.8 L 9.7 L Hct 26.2 L 27.8 L 30.3 L 09/15/18 04:00 Hgb 10.6 L Hct 32.5 L Assessment and Plan (1) Femur fracture, left POD #2 s/p ORIF left distal femur: -d/c planning per hospitalist -50% WB with walker -keep brace on for sleep and ambulation. May undo straps at rest to allow skin to breath. Undo straps in bed and lay ice on thigh more directly to help with pain -tab, aquacel dressing -ortho f/u in [place] per patient unless patient transfers to SNF nearby then f/u with Dr. Pang in 10-14 days ASA for dvt prophylaxis Status: Acute Qualifiers: Encounter type: initial encounter Femur location: distal, unspecified portion Fracture type: closed
[2018-09-18] MEDS: INSULIN LISPRO 1 UNIT/0.01 ML UNIT SQ SCH ×2 (07:36→12:08)
[2018-09-18] MEDS: DILTIAZEM 120 MG CAP.XL.24H PO SCH (08:54)
[2018-09-18] MEDS: FAMOTIDINE 20 MG TABLET PO SCH (08:58)
[2018-09-18] MEDS: ASPIRIN 81 MG TAB.CHEW PO SCH (08:58)
[2018-09-18] MEDS: DOCUSATE SODIUM 100 MG CAPSULE PO SCH (08:59)
[2018-09-18] MEDS: CARVEDILOL 12.5 MG TABLET PO SCH (09:00)
[2018-09-18] MEDS: LOSARTAN 50 MG TABLET PO SCH (09:00)
[2018-09-18] MEDS: POTASSIUM CHLORIDE 10 MEQ TABLET PO SCH (09:01)
[2018-09-18] MEDS: POLYETHYLENE GLYCOL 3350 17 GM PACKET PO PRN (09:01)
[2018-09-18] MEDS ORDERED: INSULIN GLARGINE, HUMAN 1 UNIT/0.01 ML SQ SCH (21:00)
== END 2018-09-18 14:00 | DRG 481 ==
LOC: ED 03:36 → MEDSUR 09:21
PROVIDERS: ADMIT Internal Medicine; ATTEND Internal Medicine

== ENCOUNTER 2018-09-18 17:33 | Observation (INO) ==
--- NOTE | 2018-09-18 18:14 | Emergency Department Note ---
Weakness HPI - General Chief complaint: Weakness Stated complaint: weakness Time Seen by Provider: 09/18/18 17:39 Source: patient Mode of arrival: ambulatory Limitations: no limitations - History of Present Illness HPI Narrative: Patient returns from the [facility] in [place] which is a rehabilitation facility that she was referred to and transferred to the hospital. Patient was discharged from the hospital today with the diagnosis of left comminuted distal femur fracture in the setting of prior prosthesis of. Patient also has a history of ITP, also history of diabetes and morbid obesity. Patient went to the rehabilitation facility and felt like their facilities were inadequate to handle her obesity and do proper rehabilitation. Her son is with her today they states that she was weak, she is complaining of pain to the left knee and she is postop from left knee surgery. Her last dose of pain medication was at 2 PM she denies nausea, denies vomiting, she does have right-sided chest pain from falling and hitting the right side of her chest when she fell several days ago, had x-rays done of the ribs, no rib fracture diagnosed. She does have diabetes, did eat some lunch, her left leg is in a knee brace which is locked and the left leg is immobilized with this brace in place. Left leg is wrapped with Adan wraps. No fevers reported, she denies cough, denies shortness of breath, denies urinary symptoms, she's had no abdominal pain, last bowel movement was yesterday. MD Complaint: generalized weakness Location: generalized - Related Data Home Medications Medication Instructions Recorded Confirmed Carvedilol [Coreg] 25 mg PO BID 09/15/18 09/15/18 Cholecalciferol (Vitamin D3) 2,000 unit PO DAILY 09/15/18 09/15/18 [Children's Vitamin D3] Diltiazem HCl [Diltiazem 24Hr Cd] 120 mg PO DAILY 09/15/18 09/15/18 Furosemide [Lasix] 40 mg PO DAILY 09/15/18 09/15/18 Insulin Detemir [Levemir] 58 unit SQ HS 09/15/18 09/15/18 Losartan/Hctz 100/25 1 tab PO DAILY 09/15/18 09/15/18 Potassium Chloride [Kdur] 10 meq PO QAMCC 09/15/18 09/15/18 Vitamin B-12 1,000 mcg PO DAILY 09/15/18 09/15/18 cycloSPORINE [Restasis] 1 each OP DAILY 09/15/18 09/15/18 metFORMIN HCL [Metformin ER 1,000 mg PO BID 09/15/18 09/15/18 Osmotic] Previous Rx's Medication Instructions Recorded Aspirin 81 mg PO BID #58 tab.chew 09/17/18 HYDROcodone/APAP 10/325MG [[place] 1 tab PO Q4HP PRN #20 tab 09/17/18 10-325Mg] Allergies Allergy/AdvReac Type Severity Reaction Status Date / Time iodine Allergy Intermediate Difficulty Verified 09/15/18 12:02 Breathing Review of Systems All systems ED: reviewed and negative except as stated. Constitutional: Denies: fever, chills ENT ED: Denies: ear pain Cardiovascular: Reports: chest pain, dyspnea on exertion Gastrointestinal: Denies: abdominal pain, nausea, vomiting Musculoskeletal: Reports: joint swelling Neurological: Reports: weakness. Denies: headache, confusion Psychiatric: Denies: suicidal thoughts Endocrine: Reports: fatigue Hematological/Lymphatic: Reports: easy bleeding, easy bruising, other (history of ITP) Past Medical History - Past Medical History Source: old records reviewed, nursing notes reviewed Medical history: Reports: DM, hypertension, other (ITP) Surgical history ED: Reports: knee replacement, orthopedic, other, splenectomy Family history: Reports: CAD/IN, diabetes, hypertension - Social History smoking status: Never smoker Alcohol use: Reports: None Drug use: Reports: none Physical Exam Limitations: no limitations General appearance: alert, in no apparent distress Head: atraumatic, normocephalic, normal inspection Eye: Present: normal appearance, PERRL, EOMI. Absent: conjunctival injection ENT: mucous membranes moist, TM's normal bilaterally, other (selective bruising to the right side of the face, she is moving her jaw normally. There is no TMJ tenderness. There is no jaw tenderness.) Neck: Present: normal inspection, full ROM, trachea midline. Absent: tenderness, meningismus Chest: Present: normal inspection, symmetric chest wall rise, tenderness, other (tender right lateral side of the chest wall, lower ribs anteroaxillary line up.) Respiratory: Present: normal lung sounds bilaterally. Absent: respiratory distress, rales/crackles Cardiovascular: Present: regular rate, normal heart sounds Abdominal: Present: soft, normal bowel sounds. Absent: distention, tenderness, guarding Extremities: Present: pedal edema, pretibial edema, joint swelling, other (left lower extremities and a brace and Adan wrap. He does have intact distal sensation.) Back: Present: normal inspection. Absent: CVA tenderness (R), CVA tenderness (L) Neurological: Present: alert, oriented X3, CN II-XII intact Psychiatric: Present: normal affect Skin: Present: warm, dry, normal color Course - Reevaluation(s) Reevaluation #1: Family interviewed him. Further history is obtained from the care facility and it turns out she was at the care facility and did not like the carpet that was in her room. They gave her room without a carpet and then she was complaining about her walker. Managed bringing her the walker that she had here at the hospital which she like better, she then was still unhappy with conditions in this rehabilitation facility. She did not sign any of the orders to admit her to that facility that she could not get any of her pain medications . The son was more concerned about her generalized overall condition, she would prefer to be back at home but this is not possible given transportation issues. We did unwrap her left leg, the dressing was intact. There is no discharge or drainage from the dressing, there is no localized unusual tenderness. There was no redness surrounding the dressing and thus no signs of wound infection at this time. In reviewing her labs she appears slightly more hemoconcentrated and thus her white blood cell count is elevated slightly. Urinalysis was negative. Chest x- ray read as negative. At this point we discussed observation. She was given 1 dose of Dilaudid for pain and she states her pain is still 5-6 out of 10. We will attempt to address pain issues at this time. Vital Signs Temperature 97.9 F 09/18/18 17:34 Pulse Rate 72 09/18/18 17:34 Respiratory Rate 20 09/18/18 17:34 Blood Pressure 175/71 09/18/18 17:34 Pulse Oximetry (%) 97 09/18/18 17:34 Temperature 97.9 F 09/18/18 17:34 Pulse Rate 75 09/18/18 20:31 Respiratory Rate 20 09/18/18 17:34 Blood Pressure 165/62 09/18/18 20:31 Pulse Oximetry (%) 97 09/18/18 20:31 Weakness - MDM Narrative Medical decision making narrative: Impression is #1 status post left distal femur fracture. #2 morbid obesity #3 diabetes mellitus number 4) elevated white blood cell count, undetermined etiology5) pain control issues to the left leg. I spoke with our hospitalist Dr. Bentley, and he will be managing the patient at this point. Observation status. - Lab Data Lab results reviewed: Yes I reviewed the patient's lab results. Result diagrams: 09/18/18 18:40 09/18/18 18:40 Lab Results 09/18/18 09/18/18 09/18/18 Range/Units 18:31 18:40 18:40 WBC 14.1 H (4.5-11.0) K/mcL RBC 3.57 L (4.00-5.20) M/mcL Hgb 9.7 L (12.0-15.0) g/dL Hct 30.0 L (36.0-48.0) % MCV 84.1 (80.0-100.0) fL MCH 27.3 (26.0-34.0) pg MCHC 32.4 (31.0-36.0) g/dL RDW 17.1 H (11.5-14.5) % Plt Count 122 L (140-440) K/mcL MPV 11.5 H (7.4-10.4) fL Gran % 67.3 (38.0-78.0) % Lymph % (Auto) 18.9 (15.5-49.0) % [place] % (Auto) 8.4 (1.0-12.0) % Eos % (Auto) 5.0 (0.0-7.0) % Baso % (Auto) 0.4 (0.0-2.0) % Gran # 9.5 H (1.8-8.0) K/mcL Lymph # (Auto) 2.7 (1.5-4.8) K/mcL [place] # (Auto) 1.2 H (0.1-0.9) K/mcL Eos # (Auto) 0.7 (0.0-0.7) K/mcL Baso # (Auto) 0.1 (0.0-0.3) K/mcL Sodium 136 (133-145) mmol/L Potassium 3.9 (3.3-5.1) mmol/L Chloride 101 (96-108) mmol/L Carbon Dioxide 26 (22-30) mmol/L Anion Gap 9.0 (8-16) BUN 26 H (8-23) mg/dl Creatinine 0.9 (0.6-1.1) mg/dl GFR Calculation 65 Glucose 213 H (70-105) mg/dL Calcium 7.9 L (8.6-10.4) mg/dl Total Bilirubin 0.5 (0.0-1.0) mg/dL AST 42 H (0-37) U/l ALT 26 (0-40) U/l Alkaline Phosphatase 123 H (39-117) U/L Total Protein 6.8 (5.9-8.4) gm/dL Albumin 3.3 (3.2-5.2) gm/dL Globulin 3.5 (2.2-3.7) gm/dL Albumin/Globulin Ratio 0.9 L (1.0-2.3) Urine Color Yellow Urine Appearance Clear Urine pH 6.0 (5.0-9.0) Ur Specific [place] 1.012 (1.000-1.035) Urine Protein Neg (NEG) mg/dL Urine Glucose (UA) Negative (NEG) mg/dL Urine Ketones Neg (NEG) mg/dL Urine Occult Blood 0.2 A (<0.03) mg/dL Urine Nitrate Neg (NEG) Urine Bilirubin Neg (NEG) mg/dL Urine Urobilinogen Neg (NEG) mg/dL Ur Leukocyte Esterase Neg (NEG) /uL Urine RBC 15 H (0-1) /hpf Urine WBC 1 (0-4) /hpf Ur Squamous Epith Cells 0 (0-4) /hpf Ur Transition Epith Cell < 1 (0-2) /hpf Urine Bacteria 0 (0) /hpf Urine Mucus Few (0) /hpf Ur Culture Indicated? No Disposition Pt seen by MARKET RESEARCH INTERVIEWER/PA only: No Clinical Impression: Femur fracture, left Disposition: Xfer As Outpt/Obs ([facility]) Condition: Fair
[2018-09-18] MEDS ORDERED: LACTATED RINGERS 1,000 ML IV ONE (18:17)
[2018-09-18] MEDS ORDERED: HYDROmorphone 2 MG/ML VIAL IV ONE ×2 (18:18→20:26)
[2018-09-18 19:35] LABS: Appearance,Urine CLEAR; Bacteria,Urine 0 /hpf (0); Bilirubin,Urine NEG (NEG); Color,Urine YELLOW; Culture Indicated,Urine NO; Glucose,Urine (UA) NEGATIVE (NEG); Ketones,Urine NEG (NEG); Leukocyte Esterase,Urine NEG /uL (NEG); Mucus,Urine FEW /hpf (0); Nitrate,Urine NEG (NEG); Protein,Urine NEG (NEG); Specific Gravity,Urine 1.012 (1.000-1.035); Urine Blood 0.2 mg/dL (<0.03); Urine RBC 15 /hpf (0-1); Urine Squamous Epithelial Cell 0 /hpf (0-4); Urine Transitional Epi Cells < 1 /hpf (0-2); Urine WBC 1 /hpf (0-4); Urobilinogen,Urine NEG (NEG)
[2018-09-18 19:35] LABS: Basophils # (Auto) 0.1 K/mcL (0.0-0.3); Basophils % (Auto) 0.4 % (0.0-2.0); Eosinophils # (Auto) 0.7 K/mcL (0.0-0.7); Granulocytes % (Auto) 67.3 % (38.0-78.0); Hemoglobin 9.7 g/dL (12.0-15.0); Lymphocytes # (Auto) 2.7 K/mcL (1.5-4.8); Lymphocytes % (Auto) 18.9 % (15.5-49.0); Mean Cell Volume 84.1 fL (80.0-100.0); Mean Corpuscular HGB Conc 32.4 g/dL (31.0-36.0); Mean Platelet Volume 11.5 fL (7.4-10.4); Monocytes # (Auto) 1.2 K/mcL (0.1-0.9); Monocytes % (Auto) 8.4 % (1.0-12.0); Platelet Count 122 K/mcL (140-440); RBC 3.57 M/mcL (4.00-5.20); Red Cell Distribution Width 17.1 % (11.5-14.5); WBC 14.1 K/mcL (4.5-11.0)
[2018-09-18 19:50] LABS: ALT/SGPT 26 U/l (0-40); AST/SGOT 42 U/l (0-37); Albumin 3.3 gm/dL (3.2-5.2); Albumin/Globulin Ratio 0.9 (1.0-2.3); Alkaline Phosphatase 123 U/L (39-117); Bilirubin,Total 0.5 mg/dL (0.0-1.0); Blood Urea Nitrogen 26 mg/dl (8-23); Calcium 7.9 mg/dl (8.6-10.4); Carbon Dioxide 26 mmol/L (22-30); Chloride 101 mmol/L (96-108); Globulin 3.5 gm/dL (2.2-3.7); Glomerular Filtration Rate 65; Glucose 213 mg/dL (70-105); Potassium 3.9 mmol/L (3.3-5.1); Sodium 136 mmol/L (133-145)
[2018-09-18] MEDS ORDERED: HYDROCODONE/APAP 7.5/325MG TABLET PO ONE (20:30)
--- NOTE | 2018-09-18 21:15 | Internal Med History&Physical ---
Medical - H&P: HPI Patient information: Note initiated : 09/18/18 at 9:09 pm Service Date, if different from initiated Date: [] Patient: Jeannine Sutton a 68 y/o F admitted on for weakness. Chief Complaint: [] History of present illness: Ms. Sutton is a 68 year old F with h/o recent fall, left knee fracture, s/p rosario rgery, was discharged today to SNF by the previous provider. The patient on reaching the rehab facility seemed to not like the facility, she was upset over many things according to the notes. On my talking to the patient she said she was just having a bad day and was very frustrated. It seems that the patient was upset about the carpet, she was upset about the fact that she was not able to see bariatric equipment at the facility, she was not very happy with the facility overall. She did not sign the admission papers at the rehab center. She was brought back to the emergency room as there was no other place for her to be discharged safely. The patient only complains about pain at the site of surgery which is expected. She also has some soreness on the right side of the chest from the fall, she denies any chest pain cough shortness of breath abdominal pain, she denies any urinary symptoms no diarrhea. Labs reviewed stable, mild leukocytosis either reactive or hemoconcentration all 3 cell lines are trending up. Chemistry unremarkable UA negative for infection chest x-ray is negative. Given the fact that the patient cannot be discharged from the ER at this time I have been asked to admit this patient for placement tomorrow back to the rehab center. The rehab center is willing to take the patient back and the patient is okay going back to the center now. All systems: reviewed and no additional remarkable complaints except as stated (as per HPI rest negative) Medical - H&P: PMH Medical history: DM MOrbid obesity ITP HTN Surgical history: Past surgical history includes bilateral knee arthroplasties Parathyroid surgery Laminectomy Pertinent family history: Mother diabetes hypertension Father diabetes hypertension Social history: Patient denies tobacco or alcohol ambulates with a cane lives at home with her son Medical - H&P: Meds Home Medications Medication Instructions Recorded Confirmed Type Carvedilol [Coreg] 25 mg PO BID 09/15/18 09/15/18 History Cholecalciferol (Vitamin D3) 2,000 unit PO DAILY 09/15/18 09/15/18 History [Children's Vitamin D3] Diltiazem HCl [Diltiazem 24Hr Cd] 120 mg PO DAILY 09/15/18 09/15/18 History Furosemide [Lasix] 40 mg PO DAILY 09/15/18 09/15/18 History Insulin Detemir [Levemir] 58 unit SQ HS 09/15/18 09/15/18 History Losartan/Hctz 100/25 1 tab PO DAILY 09/15/18 09/15/18 History Potassium Chloride [Kdur] 10 meq PO QAMCC 09/15/18 09/15/18 History Vitamin B-12 1,000 mcg PO DAILY 09/15/18 09/15/18 History cycloSPORINE [Restasis] 1 each OP DAILY 09/15/18 09/15/18 History metFORMIN HCL [Metformin ER 1,000 mg PO BID 09/15/18 09/15/18 History Osmotic] Aspirin 81 mg PO BID #58 tab.chew 09/17/18 Rx HYDROcodone/APAP 10/325MG [[place] 1 tab PO Q4HP PRN #20 tab 09/17/18 Rx 10-325Mg] Allergies Allergy/AdvReac Type Severity Reaction Status Date / Time iodine Allergy Intermediate Difficulty Verified 09/15/18 12:02 Breathing Medical - H&P: Exam - Constitutional Vitals: Temp Pulse Resp BP Pulse Ox 97.9 F 75 20 165/62 97 09/18/18 17:34 09/18/18 20:31 09/18/18 17:34 09/18/18 20:31 09/18/18 20:31 Exam: Constitutional; Afebrile, cooperative, alert, not in distress. Morbidly obese Eyes- No icterus, , No periorbital swelling Ears- Ext ear normal, hearing normal to conversation. Neck- Midline trachea, supple Respiratory system: Air Entry equal on both sides, No crackles or wheezing, no rhonchi. CVS- Rate rhythm regular, S1,S2 heard, no gallop, no rub. Abdomen- Soft nontender abdomen, no organomegaly, no tenderness, no guarding or rigidity, GOLF BALL COVER TREATER- AOOx3, moving all extremities, no gross focal deficit noted. Left knee covered in dressing and brace Medical - H&P: Reslt - Labs CBC & Chem 7: 09/18/18 18:40 09/18/18 18:40 Labs: Short CBC 09/18/18 Range/Units 18:40 WBC 14.1 H (4.5-11.0) K/mcL Hgb 9.7 L (12.0-15.0) g/dL Hct 30.0 L (36.0-48.0) % Plt Count 122 L (140-440) K/mcL BMP 09/18/18 18:40 Sodium 136 Potassium 3.9 Chloride 101 Carbon Dioxide 26 BUN 26 H Creatinine 0.9 Glucose 213 H Calcium 7.9 L Liver Function 09/18/18 Range/Units 18:40 Total Bilirubin 0.5 (0.0-1.0) mg/dL AST 42 H (0-37) U/l ALT 26 (0-40) U/l Alkaline Phosphatase 123 H (39-117) U/L Albumin 3.3 (3.2-5.2) gm/dL Urine 09/18/18 Range/Units 18:31 Urine Color Yellow Urine Appearance Clear Urine pH 6.0 (5.0-9.0) Ur Specific Rew 1.012 (1.000-1.035) Urine Protein Neg (NEG) mg/dL Urine Glucose (UA) Negative (NEG) mg/dL Medical - H&P: A/P - Narrative A/P Narrative: A/P Leucocytosis -Reactive, no e/o acute infection. Post op pain -manage by po meds, use IV if absolutely needed, Maria L APAP, Oxycodone and celebrex, IV dialudid if oral does not help. DM HTN Morbid Obesity , BMI 42.8 s/p Knee surgery, s/pfracture Need for placement ITP (stable) Plan Admit as obs for now Case management to evaluate patient and assist with disposition will resume home meds once verified glucose control pain control DVT hep sq Diet carb consistent Full code.
[2018-09-18] MEDS ORDERED: ONDANSETRON 4 MG/2 ML VIAL IV PRN (21:45)
[2018-09-18] MEDS ORDERED: HYDROmorphone 2 MG/ML VIAL IV PRN (21:45)
[2018-09-18] MEDS ORDERED: DEXTROSE 31 GM ORAL.SUSP PO PRN (21:45)
[2018-09-18] MEDS ORDERED: INSULIN GLARGINE, HUMAN 1 UNIT/0.01 ML SQ SCH (21:45)
[2018-09-18] MEDS ORDERED: NALOXONE HCL 0.4 MG/ML VIAL IV PRN (21:45)
[2018-09-18] MEDS ORDERED: CELECOXIB 200 MG CAPSULE PO ONE (21:45)
[2018-09-18] MEDS ORDERED: DEXTROSE 50% 50 ML VIAL IV PRN (21:45)
[2018-09-18] MEDS: ACETAMINOPHEN 500 MG TABLET PO SCH (22:44)
[2018-09-18] MEDS: 0.9 % SODIUM CHLORIDE 10 ML SYRINGE IV SCH (22:46)
[2018-09-18] MEDS: HEPARIN 5,000 UNIT/ML VIAL SQ SCH (23:37)
[2018-09-19] MEDS: oxyCODONE HCL 5 MG TABLET PO PRN ×2 (03:26→09:03)
[2018-09-19] MEDS: 0.9 % SODIUM CHLORIDE 10 ML SYRINGE IV SCH (05:04)
[2018-09-19] MEDS ORDERED: INSULIN LISPRO 1 UNIT/0.01 ML UNIT SQ SCH (07:30)
--- NOTE | 2018-09-19 07:54 | XRay Report ---
HISTORY: Recent fall with increased weakness FINDINGS: The lungs are clear and well expanded. The heart size is normal but magnified by portable technique. There is no congestive heart failure, pneumothorax or pleural effusion. There is no widening of the mediastinum. There are surgical clips at the thoracic inlet in the general location of the thyroid. Comparison with the prior exam from 09/15/18 shows no significant change. IMPRESSION: Normal exam Interpreted and Authenticated by: Donaldo Ferreira 09/19/18
[2018-09-19] MEDS ORDERED: CELECOXIB 200 MG CAPSULE PO SCH (09:00)
[2018-09-19] MEDS: ACETAMINOPHEN 500 MG TABLET PO SCH (09:04)
--- NOTE | 2018-09-19 09:29 | Discharge Summary ---
Medical - DS: Prov Patient information: Note initiated : 09/19/18 at 9:21 am Service Date, if different from initiated Date: [] Patient: Jeannine Sutton 68 y/o F admitted on 09/18/18 for weakness. Chief Complaint: [] Date of admission: 09/18/18 21:38 Discharge date: 09/19/18 Consults: 09/18/18 Consult to Physician [CONS] Stat Comment: Consulting Provider: Marilynn Jiang Reason For Exam: Physician to Consult Discharging clinician: Marilynn Jiang Medical - DS: Meds - Discharge Medications Prescriptions: oxyCODONE HCL [Roxicodone] 10 mg PO Q4HP PRN #40 tab PRN Reason: pain not controlled by apap Active and Home Medications: Home Medications Carvedilol [Coreg] 25 mg PO BID 09/15/18 [History Confirmed 09/19/18 Last Taken 09/18/18 09:00] Cholecalciferol (Vitamin D3) [Children's Vitamin D3] 2,000 unit PO DAILY 09/15/18 [History Confirmed 09/18/18 Last Taken 09/14/18 09:00] Diltiazem HCl [Diltiazem 24Hr Cd] 120 mg PO DAILY 09/15/18 [History Confirmed 09/19/18 Last Taken 09/18/18 09:00] Furosemide [Lasix] 40 mg PO DAILY 09/15/18 [History Confirmed 09/18/18 Last Taken 09/14/18 09:00] Insulin Detemir [Levemir] 58 unit SQ HS 09/15/18 [History Confirmed 09/18/18 Last Taken 09/13/18 23:00] Losartan/Hctz 100/25 1 tab PO DAILY 09/15/18 [History Confirmed 09/19/18 Last Taken 09/18/18 09:00] Potassium Chloride [Kdur] 10 meq PO QAMCC 09/15/18 [History Confirmed 09/19/18 Last Taken 09/18/18 09:00] Vitamin B-12 1,000 mcg PO DAILY 09/15/18 [History Confirmed 09/18/18 Last Taken 09/14/18 09:00] cycloSPORINE [Restasis] 1 each OP DAILY 09/15/18 [History Confirmed 09/18/18 Last Taken 09/14/18 09:00] metFORMIN HCL [Metformin ER Osmotic] 1,000 mg PO BID 09/15/18 [History Confirmed 09/18/18 Last Taken 09/14/18 09:00] Aspirin 81 mg PO BID #58 tab.chew 09/17/18 [Rx Confirmed 09/19/18 Last Taken 09/18/18 09:00] HYDROcodone/APAP 10/325MG [Orient 10-325Mg] 1 tab PO Q4HP PRN #20 tab 09/17/18 [Rx Confirmed 09/19/18 Last Taken 09/18/18 12:00] Medical - DS: Hosp Hospital course: Ms. Sutton is a 68 year old F with h/o recent fall, left knee fracture, s/p surgery, was discharged today to SNF by the previous provider. The patient on reaching the rehab facility seemed to not like the facility, she was upset over many things according to the notes. On my talking to the patient she said she was just having a bad day and was very frustrated. It seems that the patient was upset about the carpet, she was upset about the fact that she was not able to see bariatric equipment at the facility, she was not very happy with the facility overall. She did not sign the admission papers at the rehab center. She was brought back to the emergency room as there was no other place for her to be discharged safely. The patient only complains about pain at the site of surgery which is expected. She also has some soreness on the right side of the chest from the fall, she denies any chest pain cough shortness of breath abdominal pain, she denies any urinary symptoms no diarrhea. Labs reviewed stable, mild leukocytosis either reactive or hemoconcentration all 3 cell lines are trending up. Chemistry unremarkable UA negative for infection chest x-ray is negative. Given the fact that the patient cannot be discharged from the ER at this time I have been asked to admit this patient for placement tomorrow back to the rehab center. The rehab center is willing to take the patient back and the patient is okay going back to the center now. 09/19 Pt seen examined, sitting comfortably in the chair, has no complaints. Denies chest pain shortness of breath pain control in the left leg is much better. She is stable for discharge back to the rehab center Discharge diagnosis: Placement after knee surgery - Time Spent with Patient Total time spent providing and/or coordinating discharge services: Less than 30 minutes Medical - DS: Exam - Constitutional Vitals: Vital Signs Temp Pulse Pulse Resp BP BP Pulse Ox 09/19/18 06:52 97.4 F 16 116/51 94 09/19/18 03:18 98.6 F 62 14 114/55 94 09/18/18 23:39 99.4 F H 70 14 140/71 92 09/18/18 21:57 98.9 F 77 09/18/18 21:52 97.9 F 72 20 137/45 94 09/18/18 21:48 98.9 F 77 16 164/73 95 09/18/18 21:19 72 94 09/18/18 21:16 75 137/45 96 09/18/18 21:01 72 143/56 94 09/18/18 20:46 72 96 09/18/18 20:31 75 165/62 97 09/18/18 20:16 157/65 09/18/18 20:09 72 95 09/18/18 20:02 72 136/61 96 09/18/18 19:47 72 151/57 94 09/18/18 19:32 73 149/57 96 09/18/18 19:17 75 151/57 93 09/18/18 19:02 74 153/56 93 09/18/18 18:54 78 159/58 93 09/18/18 17:34 97.9 F 72 20 175/71 97 Intake and Output 09/18/18 09/19/18 09/19/18 21:59 05:59 13:59 Intake Total 1000 50 240 Output Total 280 100 Balance 1000 -230 140 Intake: IV 1000 Lactated Ringers 1,000 ml @ 1000 Wide Open IV .Q0M ONE Rx#: [id number] Oral 50 240 Output: Urine Catheter Amount 280 100 Other: Meal Breakfast Percent of Meal Consumed 100% Feeding Ability Independent Urine Appearance Clear Clear Clear Uretheral ([place]) Clear Clear Urine Color Dark Lynne Dark Ylnne Uretheral ([place]) Dark Lynne Dark Lynne Urine Odor Strong Strong Weight 288 lb 5 oz Additional comments: Constitutional; Afebrile, cooperative, alert, not in distress. Respiratory system: Air Entry equal on both sides, No crackles or wheezing, no rhonchi. CVS- Rate rhythm regular, S1,S2 heard, no gallop, no rub. Abdomen- Soft nontender abdomen, no organomegaly, no tenderness, no guarding or rigidity, SPARK PLUG TESTER- AOOx3, moving all extremities, no gross focal deficit noted. Medical - DS: Data Labs on day of discharge: Labs from last 24 hours 09/18/18 09/18/18 09/18/18 18:40 18:40 18:40 WBC 14.1 H RBC 3.57 L Hgb 9.7 L Hct 30.0 L MCV 84.1 MCH 27.3 MCHC 32.4 RDW 17.1 H Plt Count 122 L MPV 11.5 H Gran % 67.3 Lymph % (Auto) 18.9 [place] % (Auto) 8.4 Eos % (Auto) 5.0 Baso % (Auto) 0.4 Gran # 9.5 H Lymph # (Auto) 2.7 [place] # (Auto) 1.2 H Eos # (Auto) 0.7 Baso # (Auto) 0.1 Sodium 136 Potassium 3.9 Chloride 101 Carbon Dioxide 26 Anion Gap 9.0 BUN 26 H Creatinine 0.9 GFR Calculation 65 Glucose 213 H Calcium 7.9 L Total Bilirubin 0.5 AST 42 H ALT 26 Alkaline Phosphatase 123 H Total Protein 6.8 Albumin 3.3 Globulin 3.5 Albumin/Globulin Ratio 0.9 L Procalcitonin 0.29 Urine Color Urine Appearance Urine pH Ur Specific [place] Urine Protein Urine Glucose (UA) Urine Ketones Urine Occult Blood Urine Nitrate Urine Bilirubin Urine Urobilinogen Ur Leukocyte Esterase Urine RBC Urine WBC Ur Squamous Epith Cells Ur Transition Epith Cell Urine Bacteria Urine Mucus Ur Culture Indicated? 09/18/18 18:31 WBC RBC Hgb Hct MCV MCH MCHC RDW Plt Count MPV Gran % Lymph % (Auto) [place] % (Auto) Eos % (Auto) Baso % (Auto) Gran # Lymph # (Auto) [place] # (Auto) Eos # (Auto) Baso # (Auto) Sodium Potassium Chloride Carbon Dioxide Anion Gap BUN Creatinine GFR Calculation Glucose Calcium Total Bilirubin AST ALT Alkaline Phosphatase Total Protein Albumin Globulin Albumin/Globulin Ratio Procalcitonin Urine Color Yellow Urine Appearance Clear Urine pH 6.0 Ur Specific [place] 1.012 Urine Protein Neg Urine Glucose (UA) Negative Urine Ketones Neg Urine Occult Blood 0.2 A Urine Nitrate Neg Urine Bilirubin Neg Urine Urobilinogen Neg Ur Leukocyte Esterase Neg Urine RBC 15 H Urine WBC 1 Ur Squamous Epith Cells 0 Ur Transition Epith Cell < 1 Urine Bacteria 0 Urine Mucus Few Ur Culture Indicated? No Medical - DS: A/P - Patient/Caregiver Discharge Instructions Activity: as per physical therapy, other (Ambulate with assisted device, Partial weight bearing as tolerated. ) Diet: Consistent Carbohydrate Additional Instructions: Take meds as prescribed Celebrex for total of 4 weeks Follow up with Ortho as scheduled Follow up with PCP in 1 -2 weeks Aquacel AG dressing to be left on for 4 more days, [place] in place, to be removed by ortho at appointment. Go to the ER if worsening symptoms, chest pain, shortness of breath or any other acute concern. - Follow up Plan Follow up with: Clifford Pang MD [Physician] - (call and scheduled follow up to be seen 14 days after surgery.) Disposition: [facility] SNF Prognosis: Fair Rehab Potential: Fair I certify that the patient requires SNF services: Yes Overall status at discharge: patient is progressing back to baseline Medical - DS: Qual - VTE Deep Vein Thrombosis/Pulmonary Embolism Present on Admission: No
[2018-09-19] MEDS: HEPARIN 5,000 UNIT/ML VIAL SQ SCH (10:26)
[2018-09-19] MEDS ORDERED: SENNOSIDES 1 TABLET PO SCH (21:00)
== END 2018-09-19 11:07 ==
LOC: MEDSUR 17:33 → ED 17:33 → MEDSUR 21:45
PROVIDERS: ADMIT Internal Medicine; ATTEND Internal Medicine

== ENCOUNTER 2023-02-06 09:31 | Inpatient (IN) ==
[2023-02-06] MEDS ORDERED: IOPAMIDOL 100 ML BOTTLE IV ONE (09:32)
[2023-02-06 09:46] LABS: POC Calcium, Ionized 1.1 (1.16-1.32); POC Creatinine 0.8 (0.6-1.2); POC Potassium 4.1 (3.3-5.1)
[2023-02-06] MEDS ORDERED: 0.9 % SODIUM CHLORIDE 1,000 ML IV ONE (09:49)
[2023-02-06 11:13] LABS: INR 2.6 (0.9-1.1); Prothrombin Time 28.8 sec (11.9-14.5)
[2023-02-06 11:24] LABS: Basophils # (Auto) 0.06 K/mcL (0.00-0.30); Eosinophils # (Auto) 0.22 K/mcL (0.00-0.70); Eosinophils % (Auto) 3.6 % (0.0-7.0); Hematocrit 35.5 % (34.1-44.9); Hemoglobin 11.1 g/dL (11.2-15.7); Lymphocytes # (Auto) 1.71 K/mcL (1.50-4.80); Lymphocytes % (Auto) 27.6 % (15.5-49.0); Mean Cell Volume 85.7 fL (80.0-100.0); Mean Corpuscular HGB Conc 31.3 g/dL (31.0-36.0); Monocytes # (Auto) 0.97 K/mcL (0.10-0.90); Monocytes % (Auto) 15.7 % (1.0-12.0); Neutrophils % (Auto) 51.5 % (38.0-78.0); Platelet Count 29 K/mcL (140-440); RBC 4.14 M/mcL (3.59-5.38); Red Cell Distribution Width 15.5 % (11.5-14.5); WBC 6.2 K/mcL (4.5-11.0)
[2023-02-06] MEDS ORDERED: HYDROmorphone 0.5 MG/0.5 ML SYRINGE IV ONE ×2 (11:51→17:02)
[2023-02-06 12:15] LABS: ALT/SGPT 16 U/L (<40); AST/SGOT 46 U/L (<32); Alkaline Phosphatase 116 U/L (39-117); Bilirubin,Direct < 0.2 mg/dL (0-0.3); Bilirubin,Total 0.5 mg/dL (0.1-1.0); Globulin 4.6 gm/dL (2.2-3.7)
[2023-02-06 13:06] LABS: Appearance,Urine CLEAR (Clear); Bilirubin,Urine Negative (Negative); Color,Urine YELLOW; Culture Indicated,Urine No; Glucose,Urine (UA) Negative (Negative); Ketones,Urine Negative (Negative); Leukocyte Esterase,Urine Negative /uL (Negative); Mucus,Urine FEW /hpf; Nitrate,Urine Negative (Negative); Protein,Urine Negative (Negative); Specific Gravity,Urine 1.019 (1.000-1.035); Urine Blood Negative (Negative); Urine RBC 4 /hpf (0-3); Urine Squamous Epithelial Cell 1 /hpf (0-4); Urine WBC 1 /hpf (0-4)
[2023-02-06] MEDS ORDERED: ONDANSETRON 4 MG/2 ML VIAL IV ONE (13:39)
[2023-02-06] MEDS ORDERED: morphine 4 MG/ML VIAL IV ONE (13:39)
[2023-02-06] MEDS ORDERED: VANCOMYCIN 1,500 MG in 0.9 % SODIUM CHLORIDE 500 ML IV ONE (17:02)
[2023-02-06] MEDS ORDERED: DEXAMETHASONE 10 MG/ML VIAL IV ONE (20:31)
[2023-02-06] MEDS ORDERED: methylPREDNISolone SOD SUCC 125 MG/2 ML VIAL IV ONE (20:33)
[2023-02-06] MEDS ORDERED: ONDANSETRON 4 MG/2 ML VIAL IV PRN (21:42)
[2023-02-06] MEDS ORDERED: DEXTROSE 31 GM ORAL.SUSP PO PRN (21:42)
[2023-02-06] MEDS ORDERED: DEXTROSE 50% 50 ML VIAL IV PRN (21:42)
[2023-02-06] MEDS ORDERED: HYDROmorphone 0.5 MG/0.5 ML SYRINGE IV PRN (21:42)
[2023-02-06] MEDS ORDERED: SENNOSIDES 1 TABLET PO SCH (21:42)
[2023-02-06] MEDS ORDERED: HYDROcodone/APAP 5/325MG TABLET PO PRN (21:42)
[2023-02-06] MEDS ORDERED: ACETAMINOPHEN 325 MG TABLET PO PRN (21:42)
[2023-02-06] MEDS: DOCUSATE SODIUM 100 MG CAPSULE PO SCH (22:06)
[2023-02-06] MEDS: INSULIN LISPRO 1 UNIT/0.01 ML UNIT SQ SCH (22:13)
[2023-02-06] MEDS: 0.9 % SODIUM CHLORIDE 10 ML SYRINGE IV SCH (23:19)
[2023-02-07] MEDS: 0.9 % SODIUM CHLORIDE 10 ML SYRINGE IV SCH ×3 (05:34→21:13)
[2023-02-07 07:35] LABS: Basophils # (Auto) 0.03 K/mcL (0.00-0.30); Basophils % (Auto) 0.4 % (0.0-2.0); Eosinophils # (Auto) 0 K/mcL (0.00-0.70); Eosinophils % (Auto) 0 % (0.0-7.0); Hematocrit 34.3 % (34.1-44.9); Hemoglobin 10.6 g/dL (11.2-15.7); Lymphocytes # (Auto) 0.82 K/mcL (1.50-4.80); Lymphocytes % (Auto) 10.2 % (15.5-49.0); Mean Cell Volume 87.5 fL (80.0-100.0); Mean Corpuscular HGB Conc 30.9 g/dL (31.0-36.0); Mean Platelet Volume 11.5 fL (8.8-12.5); Monocytes # (Auto) 0.04 K/mcL (0.10-0.90); Monocytes % (Auto) 0.5 % (1.0-12.0); Platelet Count 36 K/mcL (140-440); RBC 3.92 M/mcL (3.59-5.38); Red Cell Distribution Width 15.4 % (11.5-14.5)
[2023-02-07 07:40] LABS: ALT/SGPT 17 U/L (<40); AST/SGOT 35 U/L (<32); Albumin 2.6 gm/dL (3.2-5.2); Albumin/Globulin Ratio 0.5 (1.0-2.3); Alkaline Phosphatase 121 U/L (39-117); Bilirubin,Direct 0.3 mg/dL (<0.3); Bilirubin,Total 0.5 mg/dL (0.1-1.0); Blood Urea Nitrogen 13 mg/dL (8-23); Carbon Dioxide 23 mmol/L (22-30); Chloride 97 mmol/L (96-108); Globulin 4.8 gm/dL (2.2-3.7); Glomerular Filtration Rate 86; Glucose 130 mg/dL (70-105); Lactate Dehydrogenase 165 U/L (135-225); Phosphorous 4.5 mg/dL (2.5-4.5); Triglycerides 76 mg/dL (<150); Uric Acid 5.5 mg/dL (2.5-8.0)
[2023-02-07 07:43] LABS: INR 1.6 (0.9-1.1); Prothrombin Time 19.3 sec (11.9-14.5)
[2023-02-07] MEDS: DOCUSATE SODIUM 100 MG CAPSULE PO SCH (08:26)
[2023-02-07] MEDS: INSULIN LISPRO 1 UNIT/0.01 ML UNIT SQ SCH ×4 (08:51→21:12)
[2023-02-07] MEDS: DEXAMETHASONE 10 MG/ML VIAL IV SCH (08:51)
[2023-02-07] MEDS: FUROSEMIDE 40 MG/4 ML VIAL IV SCH ×2 (10:50→16:33)
[2023-02-07] MEDS ORDERED: POLYETHYLENE GLYCOL 3350 17 GM PACKET PO PRN (14:07)
[2023-02-07] MEDS ORDERED: oxyCODONE IR 5 MG TABLET PO PRN (14:07)
[2023-02-07] MEDS ORDERED: traMADol 50 MG TABLET PO PRN (14:15)
[2023-02-07] MEDS ORDERED: Cyclosporine [Restasis] 0.05 % Dropperette OU PRN (14:17)
[2023-02-07] MEDS ORDERED: INSULIN GLARGINE, HUMAN 1 UNIT/0.01 ML SQ SCH (14:30)
[2023-02-07] MEDS ORDERED: SENNOSIDES 1 TABLET PO PRN (14:45)
[2023-02-07] MEDS: METHOCARBAMOL 500 MG TABLET PO SCH ×2 (16:18→21:13)
[2023-02-07] MEDS: KETOROLAC 10 MG TABLET PO SCH ×2 (16:32→21:12)
[2023-02-07] MEDS: INSULIN GLARGINE, HUMAN 1 UNIT/0.01 ML SQ SCH (21:11)
[2023-02-07] MEDS: FAMOTIDINE 20 MG TABLET PO SCH (21:12)
[2023-02-08] MEDS: 0.9 % SODIUM CHLORIDE 10 ML SYRINGE IV SCH ×3 (05:21→21:48)
[2023-02-08 06:28] LABS: Basophils # (Auto) 0 K/mcL (0.00-0.30); Basophils % (Auto) 0 % (0.0-2.0); Eosinophils # (Auto) 0 K/mcL (0.00-0.70); Eosinophils % (Auto) 0 % (0.0-7.0); Hematocrit 32.5 % (34.1-44.9); Hemoglobin 10.3 g/dL (11.2-15.7); Lymphocytes # (Auto) 0.85 K/mcL (1.50-4.80); Lymphocytes % (Auto) 10.7 % (15.5-49.0); Mean Cell Volume 85.3 fL (80.0-100.0); Mean Corpuscular HGB Conc 31.7 g/dL (31.0-36.0); Mean Platelet Volume 13.1 fL (8.8-12.5); Monocytes # (Auto) 0.46 K/mcL (0.10-0.90); Monocytes % (Auto) 5.8 % (1.0-12.0); Neutrophils % (Auto) 82.9 % (38.0-78.0); Platelet Count 84 K/mcL (140-440); RBC 3.81 M/mcL (3.59-5.38); Red Cell Distribution Width 15.1 % (11.5-14.5)
[2023-02-08 06:45] LABS: INR 1.4 (0.9-1.1)
[2023-02-08 06:56] LABS: ALT/SGPT 15 U/L (<40); AST/SGOT 23 U/L (<32); Albumin 2.3 gm/dL (3.2-5.2); Albumin/Globulin Ratio 0.5 (1.0-2.3); Alkaline Phosphatase 130 U/L (39-117); Bilirubin,Direct 0.2 mg/dL (<0.3); Bilirubin,Total 0.5 mg/dL (0.1-1.0); Blood Urea Nitrogen 24 mg/dL (8-23); Calcium 7.8 mg/dL (8.6-10.4); Carbon Dioxide 25 mmol/L (22-30); Chloride 97 mmol/L (96-108); Globulin 4.7 gm/dL (2.2-3.7); Glomerular Filtration Rate 73; Glucose 253 mg/dL (70-105); Lactate Dehydrogenase 177 U/L (135-225); Phosphorous 2.9 mg/dL (2.5-4.5); Triglycerides 70 mg/dL (<150); Uric Acid 6.2 mg/dL (2.5-8.0)
[2023-02-08] MEDS ORDERED: POTASSIUM CHLORIDE 20 MEQ TABLET PO ONE (08:05)
[2023-02-08] MEDS: ATORVASTATIN 40 MG TABLET PO SCH (08:15)
[2023-02-08] MEDS: OMEPRAZOLE 20 MG CAPSULE PO SCH (08:15)
[2023-02-08] MEDS: FAMOTIDINE 20 MG TABLET PO SCH ×2 (08:15→21:46)
[2023-02-08] MEDS: METHOCARBAMOL 500 MG TABLET PO SCH ×3 (08:15→21:46)
[2023-02-08] MEDS: INSULIN LISPRO 1 UNIT/0.01 ML UNIT SQ SCH ×4 (08:32→21:47)
[2023-02-08] MEDS: KETOROLAC 10 MG TABLET PO SCH ×3 (10:46→21:45)
[2023-02-08] MEDS: DEXAMETHASONE 10 MG/ML VIAL IV SCH (10:46)
[2023-02-08] MEDS: FUROSEMIDE 40 MG/4 ML VIAL IV SCH ×2 (10:47→16:27)
[2023-02-08] MEDS ORDERED: FUROSEMIDE 40 MG/4 ML VIAL IV SCH (16:00)
[2023-02-08] MEDS ORDERED: RIVAROXABAN 20 MG TABLET PO SCH (17:30)
[2023-02-08] MEDS: INSULIN GLARGINE, HUMAN 1 UNIT/0.01 ML SQ SCH (21:47)
[2023-02-09 06:37] LABS: Basophils # (Auto) 0 K/mcL (0.00-0.30); Basophils % (Auto) 0 % (0.0-2.0); Eosinophils # (Auto) 0 K/mcL (0.00-0.70); Eosinophils % (Auto) 0 % (0.0-7.0); Hematocrit 33.5 % (34.1-44.9); Hemoglobin 10.6 g/dL (11.2-15.7); Lymphocytes # (Auto) 0.76 K/mcL (1.50-4.80); Lymphocytes % (Auto) 7.6 % (15.5-49.0); Mean Cell Volume 86.1 fL (80.0-100.0); Mean Corpuscular HGB Conc 31.6 g/dL (31.0-36.0); Mean Platelet Volume 12.7 fL (8.8-12.5); Monocytes # (Auto) 0.35 K/mcL (0.10-0.90); Monocytes % (Auto) 3.5 % (1.0-12.0); Neutrophils % (Auto) 88.4 % (38.0-78.0); Platelet Count 115 K/mcL (140-440); RBC 3.89 M/mcL (3.59-5.38); Red Cell Distribution Width 15.4 % (11.5-14.5)
[2023-02-09 07:07] LABS: ALT/SGPT 14 U/L (<40); AST/SGOT 23 U/L (<32); Albumin 2.4 gm/dL (3.2-5.2); Albumin/Globulin Ratio 0.5 (1.0-2.3); Alkaline Phosphatase 123 U/L (39-117); Bilirubin,Direct < 0.2 mg/dL (0-0.3); Bilirubin,Total 0.4 mg/dL (0.1-1.0); Blood Urea Nitrogen 30 mg/dL (8-23); Calcium 7.5 mg/dL (8.6-10.4); Carbon Dioxide 25 mmol/L (22-30); Chloride 100 mmol/L (96-108); Globulin 4.6 gm/dL (2.2-3.7); Glomerular Filtration Rate 73; Glucose 224 mg/dL (70-105); Lactate Dehydrogenase 189 U/L (135-225); Phosphorous 2.3 mg/dL (2.5-4.5); Triglycerides 93 mg/dL (<150); Uric Acid 6.7 mg/dL (2.5-8.0)
[2023-02-09] MEDS: OMEPRAZOLE 20 MG CAPSULE PO SCH (07:24)
[2023-02-09] MEDS: 0.9 % SODIUM CHLORIDE 10 ML SYRINGE IV SCH (07:33)
[2023-02-09 07:41] LABS: INR 2.9 (0.9-1.1); Prothrombin Time 31.5 sec (11.9-14.5)
[2023-02-09] MEDS: INSULIN LISPRO 1 UNIT/0.01 ML UNIT SQ SCH ×2 (07:48→11:52)
[2023-02-09] MEDS ORDERED: FERROUS SULFATE 325 MG TABLET PO SCH (09:00)
[2023-02-09] MEDS: METHOCARBAMOL 500 MG TABLET PO SCH (10:15)
[2023-02-09] MEDS: KETOROLAC 10 MG TABLET PO SCH (10:16)
[2023-02-09] MEDS: ATORVASTATIN 40 MG TABLET PO SCH (10:16)
[2023-02-09] MEDS: FAMOTIDINE 20 MG TABLET PO SCH (10:16)
[2023-02-09] MEDS: DEXAMETHASONE 10 MG/ML VIAL IV SCH (10:20)
[2023-02-09] MEDS ORDERED: FUROSEMIDE 40 MG/4 ML VIAL IV ONE (10:38)
== END 2023-02-09 13:40 | DRG 813 ==
LOC: ED 09:31 → MEDSUR 21:35 → ICU 02-07 19:15
PROVIDERS: ADMIT Internal Medicine; ATTEND Internal Medicine

== ENCOUNTER 2023-03-03 11:21 | Inpatient (IN) ==
[2023-03-03] MEDS ORDERED: 0.9 % SODIUM CHLORIDE 1,000 ML IV ONE ×2 (11:39→12:58)
[2023-03-03 12:36] LABS: Basophils # (Auto) 0.02 K/mcL (0.00-0.30); Basophils % (Auto) 0.1 % (0.0-2.0); Eosinophils # (Auto) 0 K/mcL (0.00-0.70); Eosinophils % (Auto) 0 % (0.0-7.0); Hematocrit 33.9 % (34.1-44.9); Hemoglobin 10.9 g/dL (11.2-15.7); Lymphocytes # (Auto) 0.36 K/mcL (1.50-4.80); Lymphocytes % (Auto) 2.1 % (15.5-49.0); Mean Cell Volume 86.3 fL (80.0-100.0); Mean Corpuscular HGB Conc 32.2 g/dL (31.0-36.0); Monocytes # (Auto) 0.61 K/mcL (0.10-0.90); Monocytes % (Auto) 3.5 % (1.0-12.0); Neutrophils % (Auto) 93.5 % (38.0-78.0); Platelet Count 76 K/mcL (140-440); RBC 3.93 M/mcL (3.59-5.38); WBC 17.4 K/mcL (4.5-11.0)
[2023-03-03 12:59] LABS: Thyroid Stimulating Hormone 0.09 uIU/mL (0.27-5.01)
[2023-03-03 13:32] LABS: ALT/SGPT 64 U/L (<40); AST/SGOT 40 U/L (<32); Albumin 3.1 gm/dL (3.2-5.2); Albumin/Globulin Ratio 1.2 (1.0-2.3); Alkaline Phosphatase 102 U/L (39-117); Bilirubin,Total 0.9 mg/dL (0.1-1.0); Blood Urea Nitrogen 115 mg/dL (8-23); Calcium 8.3 mg/dL (8.6-10.4); Carbon Dioxide 28 mmol/L (22-30); Chloride 101 mmol/L (96-108); Globulin 2.5 gm/dL (2.2-3.7); Glomerular Filtration Rate 41; Glucose 115 mg/dL (70-105)
[2023-03-03 15:08] LABS: Appearance,Urine HAZY (Clear); Bilirubin,Urine Negative (Negative); Color,Urine YELLOW; Culture Indicated,Urine Yes; Glucose,Urine (UA) Negative (Negative); Ketones,Urine Negative (Negative); Leukocyte Esterase,Urine 75 /uL (Negative); Mucus,Urine FEW /hpf; Nitrate,Urine Negative (Negative); Protein,Urine Negative (Negative); Urine Blood Negative (Negative); Urine RBC 0 /hpf (0-3); Urine Squamous Epithelial Cell < 1 /hpf (0-4); Urine WBC 10 /hpf (0-4); Urobilinogen,Urine Negative
[2023-03-03] MEDS ORDERED: cefTRIAXone 1 GM VIAL IV ONE (15:17)
[2023-03-03] MEDS ORDERED: POTASSIUM CHLORIDE 20 MEQ TABLET PO PRN ×2 (18:08)
[2023-03-03] MEDS ORDERED: DEXTROSE 50% 50 ML VIAL IV PRN (18:08)
[2023-03-03] MEDS ORDERED: SENNOSIDES 1 TABLET PO PRN (18:08)
[2023-03-03] MEDS ORDERED: MAGNESIUM SULFATE 2 GM/50 ML BAG IV PRN (18:08)
[2023-03-03] MEDS ORDERED: POTASSIUM CHLORIDE 40 MEQ in DEXTROSE 5% IN WATER 500 ML IV PRN (18:08)
[2023-03-03] MEDS ORDERED: METOPROLOL TARTRATE 5 MG/5 ML VIAL IV PRN (18:08)
[2023-03-03] MEDS ORDERED: ONDANSETRON 4 MG/2 ML VIAL IV PRN (18:08)
[2023-03-03] MEDS ORDERED: DEXTROSE 31 GM ORAL.SUSP PO PRN (18:08)
[2023-03-03] MEDS ORDERED: IPRATROPIUM/ALBUTEROL 3 ML AMPUL.NEB NEB PRN (18:08)
[2023-03-03] MEDS ORDERED: POLYETHYLENE GLYCOL 3350 17 GM PACKET PO PRN (18:08)
[2023-03-03] MEDS: INSULIN LISPRO 1 UNIT/0.01 ML UNIT SQ SCH ×2 (20:24→20:25)
[2023-03-03] MEDS: DOCUSATE SODIUM 100 MG CAPSULE PO SCH (20:24)
[2023-03-04 06:24] LABS: Basophils # (Auto) 0.02 K/mcL (0.00-0.30); Basophils % (Auto) 0.1 % (0.0-2.0); Eosinophils # (Auto) 0 K/mcL (0.00-0.70); Eosinophils % (Auto) 0 % (0.0-7.0); Hematocrit 32.3 % (34.1-44.9); Lymphocytes # (Auto) 0.39 K/mcL (1.50-4.80); Lymphocytes % (Auto) 2.4 % (15.5-49.0); Neutrophils % (Auto) 91.7 % (38.0-78.0); Platelet Count 60 K/mcL (140-440); RBC 3.59 M/mcL (3.59-5.38); Red Cell Distribution Width 19.3 % (11.5-14.5); WBC 15.9 K/mcL (4.5-11.0)
[2023-03-04 06:42] LABS: ALT/SGPT 55 U/L (<40); AST/SGOT 34 U/L (<32); Albumin 2.8 gm/dL (3.2-5.2); Albumin/Globulin Ratio 1.2 (1.0-2.3); Alkaline Phosphatase 89 U/L (39-117); Bilirubin,Direct 0.3 mg/dL (<0.3); Bilirubin,Total 0.7 mg/dL (0.1-1.0); Blood Urea Nitrogen 91 mg/dL (8-23); Calcium 7.9 mg/dL (8.6-10.4); Carbon Dioxide 26 mmol/L (22-30); Chloride 109 mmol/L (96-108); Globulin 2.3 gm/dL (2.2-3.7); Glomerular Filtration Rate 56; Glucose 148 mg/dL (70-105); Lactate Dehydrogenase 290 U/L (135-225); Phosphorous 3.4 mg/dL (2.5-4.5); Triglycerides 117 mg/dL (<150); Uric Acid 13.4 mg/dL (2.5-8.0)
[2023-03-04 06:52] LABS: Free T4 (Free Thyroxine) 1.2 ng/dL (0.93-1.70)
[2023-03-04] MEDS: INSULIN LISPRO 1 UNIT/0.01 ML UNIT SQ SCH ×4 (07:28→20:29)
[2023-03-04] MEDS ORDERED: ALBUMIN HUMAN 12.5 GM/50 ML VIAL IV ONE (08:28)
[2023-03-04] MEDS ORDERED: DEXTROSE 5% IN WATER 1,000 ML IV SCH (08:30)
[2023-03-04] MEDS ORDERED: Cyclosporine [Restasis] 0.05 % Dropperette OU PRN (08:38)
[2023-03-04] MEDS: DOCUSATE SODIUM 100 MG CAPSULE PO SCH ×2 (09:24→20:28)
[2023-03-04] MEDS: FAMOTIDINE 20 MG TABLET PO SCH ×2 (09:24→20:28)
[2023-03-04] MEDS: ATORVASTATIN 40 MG TABLET PO SCH (09:24)
[2023-03-04] MEDS: CARVEDILOL 12.5 MG TABLET PO SCH ×2 (09:24→16:53)
[2023-03-04] MEDS: METHOCARBAMOL 500 MG TABLET PO SCH ×3 (09:25→20:28)
[2023-03-04] MEDS: DEXAMETHASONE 4 MG TABLET PO SCH (09:26)
[2023-03-04] MEDS: cefTRIAXone 1 GM VIAL IV SCH (11:14)
[2023-03-04 14:58] LABS: Blood Urea Nitrogen 83 mg/dL (8-23); Carbon Dioxide 28 mmol/L (22-30); Chloride 105 mmol/L (96-108); Glomerular Filtration Rate 56; Glucose 186 mg/dL (70-105)
[2023-03-04] MEDS ORDERED: RIVAROXABAN 20 MG TABLET PO SCH (17:30)
[2023-03-04] MEDS: ACETAMINOPHEN 325 MG TABLET PO PRN (20:28)
[2023-03-04] MEDS: INSULIN GLARGINE, HUMAN 1 UNIT/0.01 ML SQ SCH (20:30)
[2023-03-05 07:01] LABS: ALT/SGPT 50 U/L (<40); AST/SGOT 33 U/L (<32); Albumin 2.8 gm/dL (3.2-5.2); Albumin/Globulin Ratio 1.3 (1.0-2.3); Alkaline Phosphatase 85 U/L (39-117); Bilirubin,Direct 0.3 mg/dL (<0.3); Bilirubin,Total 0.7 mg/dL (0.1-1.0); Blood Urea Nitrogen 70 mg/dL (8-23); Calcium 7.8 mg/dL (8.6-10.4); Carbon Dioxide 29 mmol/L (22-30); Chloride 109 mmol/L (96-108); Globulin 2.2 gm/dL (2.2-3.7); Glomerular Filtration Rate 86; Glucose 107 mg/dL (70-105); Lactate Dehydrogenase 269 U/L (135-225); Phosphorous 2.4 mg/dL (2.5-4.5); Triglycerides 93 mg/dL (<150); Uric Acid 11.2 mg/dL (2.5-8.0)
[2023-03-05] MEDS: INSULIN LISPRO 1 UNIT/0.01 ML UNIT SQ SCH ×4 (07:35→21:39)
[2023-03-05] MEDS ORDERED: DEXTROSE 5% IN WATER 1,000 ML IV SCH (08:15)
[2023-03-05] MEDS: ATORVASTATIN 40 MG TABLET PO SCH (08:59)
[2023-03-05] MEDS: CARVEDILOL 12.5 MG TABLET PO SCH ×2 (08:59→17:07)
[2023-03-05] MEDS: DOCUSATE SODIUM 100 MG CAPSULE PO SCH ×2 (08:59→21:40)
[2023-03-05] MEDS: FAMOTIDINE 20 MG TABLET PO SCH ×2 (08:59→21:40)
[2023-03-05] MEDS: DEXAMETHASONE 4 MG TABLET PO SCH (09:00)
[2023-03-05 11:34] LABS: Basophils # (Auto) 0.01 K/mcL (0.00-0.30); Basophils % (Auto) 0.1 % (0.0-2.0); Eosinophils # (Auto) 0 K/mcL (0.00-0.70); Eosinophils % (Auto) 0 % (0.0-7.0); Hematocrit 31.4 % (34.1-44.9); Hemoglobin 9.8 g/dL (11.2-15.7); Lymphocytes # (Auto) 0.47 K/mcL (1.50-4.80); Lymphocytes % (Auto) 3.5 % (15.5-49.0); Mean Cell Volume 89.7 fL (80.0-100.0); Mean Corpuscular HGB Conc 31.2 g/dL (31.0-36.0); Monocytes % (Auto) 5.2 % (1.0-12.0); Neutrophils % (Auto) 90.3 % (38.0-78.0); Platelet Count 51 K/mcL (140-440); Red Cell Distribution Width 19.3 % (11.5-14.5); WBC 13.5 K/mcL (4.5-11.0)
[2023-03-05] MEDS: cefTRIAXone 1 GM VIAL IV SCH (12:23)
[2023-03-05] MEDS: METHOCARBAMOL 500 MG TABLET PO PRN ×2 (12:23→21:40)
[2023-03-05] MEDS: INSULIN GLARGINE, HUMAN 1 UNIT/0.01 ML SQ SCH (21:39)
[2023-03-05] MEDS: ACETAMINOPHEN 325 MG TABLET PO PRN (21:40)
[2023-03-06 07:05] LABS: Basophils # (Auto) 0.01 K/mcL (0.00-0.30); Basophils % (Auto) 0.1 % (0.0-2.0); Eosinophils # (Auto) 0.01 K/mcL (0.00-0.70); Eosinophils % (Auto) 0.1 % (0.0-7.0); Hematocrit 32.6 % (34.1-44.9); Hemoglobin 9.8 g/dL (11.2-15.7); Lymphocytes # (Auto) 0.52 K/mcL (1.50-4.80); Lymphocytes % (Auto) 4.1 % (15.5-49.0); Mean Cell Volume 93.4 fL (80.0-100.0); Mean Corpuscular HGB Conc 30.1 g/dL (31.0-36.0); Monocytes # (Auto) 0.67 K/mcL (0.10-0.90); Monocytes % (Auto) 5.2 % (1.0-12.0); Neutrophils % (Auto) 89.5 % (38.0-78.0); Platelet Count 52 K/mcL (140-440); RBC 3.49 M/mcL (3.59-5.38); Red Cell Distribution Width 19.4 % (11.5-14.5); WBC 12.8 K/mcL (4.5-11.0)
[2023-03-06 08:05] LABS: ALT/SGPT 56 U/L (<40); AST/SGOT 33 U/L (<32); Albumin 2.8 gm/dL (3.2-5.2); Albumin/Globulin Ratio 1.2 (1.0-2.3); Alkaline Phosphatase 93 U/L (39-117); Bilirubin,Direct 0.2 mg/dL (<0.3); Bilirubin,Total 0.6 mg/dL (0.1-1.0); Blood Urea Nitrogen 47 mg/dL (8-23); Calcium 7.6 mg/dL (8.6-10.4); Carbon Dioxide 26 mmol/L (22-30); Chloride 107 mmol/L (96-108); Globulin 2.3 gm/dL (2.2-3.7); Glomerular Filtration Rate 86; Glucose 147 mg/dL (70-105); Lactate Dehydrogenase 292 U/L (135-225); Phosphorous 1.7 mg/dL (2.5-4.5); Triglycerides 95 mg/dL (<150); Uric Acid 8.5 mg/dL (2.5-8.0)
[2023-03-06] MEDS: INSULIN LISPRO 1 UNIT/0.01 ML UNIT SQ SCH ×5 (08:06→19:46)
[2023-03-06] MEDS ORDERED: POTASSIUM PHOSPHATE 40 MEQ in DEXTROSE 5% IN WATER 500 ML IV ONE (08:07)
[2023-03-06] MEDS: NEUTRA PHOS 1 PACKET PO SCH ×2 (10:22→19:46)
[2023-03-06] MEDS: FAMOTIDINE 20 MG TABLET PO SCH ×2 (10:23→19:45)
[2023-03-06] MEDS: DEXAMETHASONE 4 MG TABLET PO SCH (10:23)
[2023-03-06] MEDS: ATORVASTATIN 40 MG TABLET PO SCH (10:23)
[2023-03-06] MEDS: CARVEDILOL 12.5 MG TABLET PO SCH ×2 (10:23→17:02)
[2023-03-06] MEDS: DOCUSATE SODIUM 100 MG CAPSULE PO SCH ×2 (10:25→19:45)
[2023-03-06] MEDS: ACETAMINOPHEN 325 MG TABLET PO PRN (15:25)
[2023-03-06] MEDS: METHOCARBAMOL 500 MG TABLET PO PRN (15:25)
[2023-03-06] MEDS ORDERED: RIVAROXABAN 20 MG TABLET PO SCH (17:30)
[2023-03-06] MEDS: INSULIN GLARGINE, HUMAN 1 UNIT/0.01 ML SQ SCH (19:46)
[2023-03-06] MEDS ORDERED: NYSTATIN 500,000 UNITS/5 ML ORAL.SUSP ONE (19:49)
[2023-03-06] MEDS: NYSTATIN 500,000 UNITS/5 ML ORAL.SUSP SSW SCH ×2 (19:50→20:05)
[2023-03-06] MEDS ORDERED: traMADol 50 MG TABLET PO ONE (23:21)
[2023-03-06] MEDS: traMADol 50 MG TABLET PO ONE (23:22)
[2023-03-07] MEDS: INSULIN LISPRO 1 UNIT/0.01 ML UNIT SQ SCH ×6 (01:11→19:59)
[2023-03-07] MEDS: traMADol 50 MG TABLET PO ONE (02:26)
[2023-03-07 07:36] LABS: Basophils # (Auto) 0.02 K/mcL (0.00-0.30); Basophils % (Auto) 0.2 % (0.0-2.0); Eosinophils # (Auto) 0.02 K/mcL (0.00-0.70); Eosinophils % (Auto) 0.2 % (0.0-7.0); Hematocrit 31.5 % (34.1-44.9); Lymphocytes # (Auto) 0.54 K/mcL (1.50-4.80); Lymphocytes % (Auto) 4.5 % (15.5-49.0); Mean Cell Volume 88.7 fL (80.0-100.0); Mean Corpuscular HGB Conc 31.7 g/dL (31.0-36.0); Monocytes # (Auto) 0.43 K/mcL (0.10-0.90); Monocytes % (Auto) 3.6 % (1.0-12.0); Neutrophils % (Auto) 90.4 % (38.0-78.0); Platelet Count 45 K/mcL (140-440); RBC 3.55 M/mcL (3.59-5.38); Red Cell Distribution Width 19.3 % (11.5-14.5); WBC 12.1 K/mcL (4.5-11.0)
[2023-03-07 07:50] LABS: ALT/SGPT 53 U/L (<40); AST/SGOT 30 U/L (<32); Albumin 2.4 gm/dL (3.2-5.2); Albumin/Globulin Ratio 1.1 (1.0-2.3); Alkaline Phosphatase 92 U/L (39-117); Bilirubin,Direct 0.3 mg/dL (<0.3); Bilirubin,Total 0.6 mg/dL (0.1-1.0); Blood Urea Nitrogen 35 mg/dL (8-23); Calcium 7.2 mg/dL (8.6-10.4); Carbon Dioxide 26 mmol/L (22-30); Chloride 106 mmol/L (96-108); Globulin 2.2 gm/dL (2.2-3.7); Glomerular Filtration Rate 86; Glucose 141 mg/dL (70-105); Lactate Dehydrogenase 289 U/L (135-225); Phosphorous 2.7 mg/dL (2.5-4.5); Triglycerides 98 mg/dL (<150); Uric Acid 7.1 mg/dL (2.5-8.0)
[2023-03-07] MEDS: CARVEDILOL 12.5 MG TABLET PO SCH ×2 (10:56→17:03)
[2023-03-07] MEDS: ATORVASTATIN 40 MG TABLET PO SCH (10:57)
[2023-03-07] MEDS: DEXAMETHASONE 4 MG TABLET PO SCH (10:57)
[2023-03-07] MEDS: FAMOTIDINE 20 MG TABLET PO SCH ×2 (10:57→19:56)
[2023-03-07] MEDS: DOCUSATE SODIUM 100 MG CAPSULE PO SCH ×2 (10:57→19:56)
[2023-03-07] MEDS: NYSTATIN 500,000 UNITS/5 ML ORAL.SUSP SSW SCH ×2 (10:57→19:56)
[2023-03-07] MEDS: INSULIN GLARGINE, HUMAN 1 UNIT/0.01 ML SQ SCH (22:01)
[2023-03-08] MEDS: INSULIN LISPRO 1 UNIT/0.01 ML UNIT SQ SCH ×6 (00:04→22:20)
[2023-03-08] MEDS: FAMOTIDINE 20 MG TABLET PO SCH ×2 (07:26→22:21)
[2023-03-08] MEDS: DOCUSATE SODIUM 100 MG CAPSULE PO SCH (07:26)
[2023-03-08] MEDS: CARVEDILOL 12.5 MG TABLET PO SCH ×2 (07:26→15:35)
[2023-03-08] MEDS: DEXAMETHASONE 4 MG TABLET PO SCH (07:26)
[2023-03-08] MEDS: NYSTATIN 500,000 UNITS/5 ML ORAL.SUSP SSW SCH ×2 (07:26→22:20)
[2023-03-08] MEDS: ATORVASTATIN 40 MG TABLET PO SCH (07:26)
[2023-03-08] MEDS ORDERED: morphine 4 MG/ML VIAL NEB PRN (11:09)
[2023-03-08] MEDS ORDERED: LACTOPEROXI/GLUC OXID/POT THIO 1 EACH GEL..EA. TOPICAL PRN (11:09)
[2023-03-08] MEDS ORDERED: LORazepam 2 MG/ML VIAL IV PRN (11:09)
[2023-03-08] MEDS: morphine 4 MG/ML VIAL IV PRN ×3 (13:40→19:39)
[2023-03-08] MEDS: LORazepam 1 MG TABLET PO PRN ×2 (16:45→19:39)
[2023-03-08] MEDS: INSULIN GLARGINE, HUMAN 1 UNIT/0.01 ML SQ SCH (22:20)
[2023-03-09] MEDS: INSULIN LISPRO 1 UNIT/0.01 ML UNIT SQ SCH ×6 (00:34→20:36)
[2023-03-09] MEDS: CARVEDILOL 12.5 MG TABLET PO SCH ×2 (08:58→17:07)
[2023-03-09] MEDS: DEXAMETHASONE 4 MG TABLET PO SCH (08:59)
[2023-03-09] MEDS: FAMOTIDINE 20 MG TABLET PO SCH ×2 (09:00→21:02)
[2023-03-09] MEDS: traMADol 50 MG TABLET PO PRN ×2 (09:00→21:01)
[2023-03-09] MEDS: METHOCARBAMOL 500 MG TABLET PO PRN ×2 (09:01→21:01)
[2023-03-09] MEDS: NYSTATIN 500,000 UNITS/5 ML ORAL.SUSP SSW SCH ×2 (09:07→21:01)
[2023-03-09] MEDS: morphine 4 MG/ML VIAL IV PRN ×2 (09:47→17:29)
[2023-03-09] MEDS: INSULIN GLARGINE, HUMAN 1 UNIT/0.01 ML SQ SCH (21:01)
[2023-03-10] MEDS: morphine 4 MG/ML VIAL IV PRN ×2 (00:26→16:39)
[2023-03-10] MEDS: INSULIN LISPRO 1 UNIT/0.01 ML UNIT SQ SCH ×7 (00:29→21:21)
[2023-03-10] MEDS: CARVEDILOL 12.5 MG TABLET PO SCH ×2 (10:21→16:38)
[2023-03-10] MEDS: FAMOTIDINE 20 MG TABLET PO SCH ×2 (10:21→21:18)
[2023-03-10] MEDS: NYSTATIN 500,000 UNITS/5 ML ORAL.SUSP SSW SCH ×2 (10:23→21:18)
[2023-03-10] MEDS: LORazepam 1 MG TABLET PO PRN (16:38)
[2023-03-10] MEDS: traMADol 50 MG TABLET PO PRN ×2 (16:39→21:18)
[2023-03-10] MEDS: DEXAMETHASONE 4 MG TABLET PO SCH (18:39)
[2023-03-10] MEDS: METHOCARBAMOL 500 MG TABLET PO PRN (21:18)
[2023-03-10] MEDS: INSULIN GLARGINE, HUMAN 1 UNIT/0.01 ML SQ SCH (21:25)
[2023-03-11] MEDS: NYSTATIN 500,000 UNITS/5 ML ORAL.SUSP SSW SCH ×2 (08:44→21:09)
[2023-03-11] MEDS: INSULIN LISPRO 1 UNIT/0.01 ML UNIT SQ SCH ×4 (08:45→21:09)
[2023-03-11] MEDS: LORazepam 1 MG TABLET PO PRN (08:45)
[2023-03-11] MEDS: CARVEDILOL 12.5 MG TABLET PO SCH ×2 (08:45→19:13)
[2023-03-11] MEDS: FAMOTIDINE 20 MG TABLET PO SCH ×2 (09:48→21:09)
[2023-03-11] MEDS: traMADol 50 MG TABLET PO PRN (19:13)
[2023-03-11] MEDS: METHOCARBAMOL 500 MG TABLET PO PRN (19:13)
[2023-03-11] MEDS: morphine 4 MG/ML VIAL IV PRN (21:07)
[2023-03-11] MEDS: INSULIN GLARGINE, HUMAN 1 UNIT/0.01 ML SQ SCH (21:11)
[2023-03-12] MEDS: morphine 4 MG/ML VIAL IV PRN ×2 (06:02→15:57)
[2023-03-12] MEDS: INSULIN LISPRO 1 UNIT/0.01 ML UNIT SQ SCH ×4 (07:46→20:37)
[2023-03-12] MEDS: CARVEDILOL 12.5 MG TABLET PO SCH ×2 (08:28→16:56)
[2023-03-12] MEDS: FAMOTIDINE 20 MG TABLET PO SCH ×2 (08:28→20:38)
[2023-03-12] MEDS: NYSTATIN 500,000 UNITS/5 ML ORAL.SUSP SSW SCH ×2 (12:03→20:47)
[2023-03-12] MEDS: ACETAMINOPHEN 325 MG TABLET PO PRN (16:56)
[2023-03-12] MEDS: LORazepam 1 MG TABLET PO PRN (16:56)
[2023-03-12] MEDS: traMADol 50 MG TABLET PO PRN (16:58)
[2023-03-12] MEDS: INSULIN GLARGINE, HUMAN 1 UNIT/0.01 ML SQ SCH (20:46)
[2023-03-13] MEDS: traMADol 50 MG TABLET PO PRN ×2 (01:11→10:15)
[2023-03-13] MEDS: LORazepam 1 MG TABLET PO PRN ×3 (01:12→13:00)
[2023-03-13] MEDS: CARVEDILOL 12.5 MG TABLET PO SCH (10:15)
[2023-03-13] MEDS: METHOCARBAMOL 500 MG TABLET PO PRN (10:15)
[2023-03-13] MEDS: FAMOTIDINE 20 MG TABLET PO SCH (10:17)
[2023-03-13] MEDS: INSULIN LISPRO 1 UNIT/0.01 ML UNIT SQ SCH ×2 (10:24→13:00)
[2023-03-13] MEDS: ACETAMINOPHEN 325 MG TABLET PO PRN (11:45)
[2023-03-13] MEDS: NYSTATIN 500,000 UNITS/5 ML ORAL.SUSP SSW SCH (13:00)
== END 2023-03-13 13:25 ==
LOC: ED 11:21 → MEDSUR 17:45
PROVIDERS: ADMIT Internal Medicine; ATTEND Internal Medicine